=== PATIENT | male | born 1945 | race Caucasian/White ===

== ENCOUNTER 2021-03-01 23:41 | Inpatient (IN) | payer OTHER ==
[~2021-03-01] VITALS: Ht 177.8 cm; Wt 79.4 kg
[2021-03-01 23:45] VITALS: BP 144/78
[2021-03-02 00:23] LABS: ABSOLUTE BASOPHILS 0.1 thou/uL (0.0-0.2); ABSOLUTE EOSINOPHILS 0.2 thou/uL (0.0-0.7); ABSOLUTE LYMPHOCYTES 1.7 thou/uL (0.8-5.3); ABSOLUTE NEUTROPHILS 5.1 thou/uL (1.6-8.1); BASOPHILS 0.6 %; EOSINOPHILS 2.6 %; HEMATOCRIT 43.7 % (42.0-52.0); HEMOGLOBIN 14.9 gm/dL (14.0-18.0); MCH 33.1 pg (26.0-34.0); MCHC 34.1 g/dL (28.0-37.0); MCV 97.1 fL (80.0-100.0); MONOCYTES 12.6 %; MPV 8.3 fl. (7.2-11.1); NUCLEATED RBCS 0 /100WBC; PLATELET COUNT* 166 thou/uL (150-400); POLYS 63.2 %; RDW-CV 14.1 % (10.5-14.5)
[2021-03-02 00:31] LABS: CALCIUM 8.4 mg/dL (8.5-10.1); CREATININE 1.2 mg/dL (0.6-1.3); POTASSIUM 3.8 mmol/L (3.5-5.1)
[2021-03-02 00:36] LABS: ALBUMIN 3.3 g/dL (3.4-5.0); TOTAL BILIRUBIN 0.7 mg/dL (<0.1-1.0); TOTAL PROTEIN 6.6 g/dL (6.4-8.2)
[2021-03-02 00:50] LABS: URINE BILIRUBIN NEGATIVE (Negative); URINE BLOOD 2+ (Negative); URINE CLARITY CLEAR; URINE COLOR YELLOW; URINE GLUCOSE-RANDOM NEGATIVE (Negative); URINE KETONES NEGATIVE (Negative); URINE LEUKOCYTES-REFLEX NEGATIVE (Negative); URINE NITRITE-REFLEX NEGATIVE (Negative); URINE PROTEIN TRACE (Negative)
[2021-03-02 01:26] LABS: CASTS None Seen /LPF (None Seen); SQUAMOUS NONE SEEN /LPF (0-3); URINE RBC 3-10 Few /HPF (0-2); URINE WBC-REFLEX None Seen /HPF (0-5)
[2021-03-02 01:27] LABS: BACTERIA-REFLEX None Seen /HPF (None Seen); CRYSTALS None Seen /LPF (None Seen)
[2021-03-02 01:53] LABS: BE -4.4 mmol/L (-2 to +3); PCO2 33.1 mmHg (35.0-45.0); pH 7.388 (7.340-7.450)
--- NOTE | 2021-03-02 09:07 | EKG ---
[place] [address] ELECTROCARDIOGRAM REPORT Name: TEJ KENNY Room: [place] [address] ADM IN ..#: [id number] Admission: 03/02/21 Attend Phys: Carrie Meza, Discharge: Date of : 41 Date of Service: 03/01/21 2345 Report #: [id number] THIS REPORT FOR: //name// [facility] ED Test Date: 2021-03-01 Test Time: 23:45:19 Pat Name: TEJ KENNY Department: Room: [facility] Gender: M Assistant Administrator: : 1945 Requested By: Padmini Maurice Order Number: [id number] MD: Guerrero Valdez Measurements Intervals [place] Rate: 93 P: 51 ND: 195 QRS: -42 QRSD: 118 T: -52 QT: 389 QTc: 484 Interpretive Statements Atrial-sensed ventricular-paced rhythm No further analysis attempted due to paced rhythm No previous ECG available for comparison Electronically Signed On 03-02-2021 9:07:13 CDT by Guerrero Valdez [email or web address] <ELECTRONICALLY SIGNED> By: Guerrero Valdez MD, FACC 03/02/21 0907 2345 2345 Guerrero Valdez MD, [facility] /EPI
[2021-03-02 14:01] LABS: HEMATOCRIT 41.9 % (42.0-52.0); HEMOGLOBIN 14.5 gm/dL (14.0-18.0); MCH 33.4 pg (26.0-34.0); MCHC 34.7 g/dL (28.0-37.0); MCV 96.4 fL (80.0-100.0); MPV 8.3 fl. (7.2-11.1); NUCLEATED RBCS 0 /100WBC; PLATELET COUNT* 168 thou/uL (150-400); RBC 4.34 mil/uL (4.50-6.00); WBC 5.1 thou/uL (4.0-11.0)
[2021-03-02 14:11] LABS: CALCIUM 8.6 mg/dL (8.5-10.1); CREATININE 1.3 mg/dL (0.6-1.3); MAGNESIUM 1.8 mg/dL (1.8-2.4); POTASSIUM 3.8 mmol/L (3.5-5.1)
[2021-03-02 14:15] LABS: APTT 25.2 Seconds (25.0-31.3); INR 1.1; PROTIME 11.7 Seconds (9.20-11.50)
--- NOTE | 2021-03-02 14:15 | 2DMMODE ---
[place] [address] 2 D/M-MODE ECHOCARDIOGRAM Name: SHIRLEYROSANATEJ Missael Room: [address] IN [facility]#: [id number] Admission: 03/02/21 Attend Phys: Carrie Meza, Discharge: Date of : 41 Date of Service: 03/02/21 1414 Report #: [id number] THIS REPORT FOR: cc: FAM - No family physician/PCP FAM - No family physician/PCP Guerrero Valdez MD [facility] ~ ADDENDUM APPROVED REPORT Study performed: 03/02/2021 10:15:16 EXAM: Comprehensive 2D, Doppler, and color-flow Echocardiogram Patient Location: In-Patient Room #: ER Status: routine BSA: 1.97 HR: 97 bpm BP: 109/72 mmHg Rhythm: NSR Other Information Study Quality: Good Indications Congestive Heart Failure 2D Dimensions IVSd: 11.20 (7-11mm) LVOT Diam: 20.32 (18-24mm) LVDd: 73.79 mm PWd: 9.45 (7-11mm) Ascending Ao: 39.26 (22-36mm) LVDs: 62.10 (25-40mm) Aortic Root: 36.96 mm Volumes Left Atrial Volume (Systole) LA ESV Index: 54.50 mL/m2 Aortic Valve AoV Peak Raj.: 1.45 m/s AO Peak Gr.: 8.46 mmHg LVOT Max P.66 mmHg AO Mean Gr.: 4.72 mmHg LVOT Mean P.90 mmHg LVOT Max V: 0.96 m/s AO V2 VTI: 29.06 cm LVOT Mean V: 0.64 m/s JENNI (VTI): 2.32 cm2 LVOT V1 VTI: 20.77 [place] [address] 2 D/M-MODE ECHOCARDIOGRAM Name: TEJ KENNY Room: [address] IN [facility]#: [id number] Admission: 03/02/21 Attend Phys: Carrie Meza, Discharge: Date of : 41 Date of Service: 03/02/21 1414 Report #: [id number] Mitral Valve E/A Ratio: 1.44 MV Decel. Time: 142.96 ms MV E Max Raj.: 1.15 m/s MV PHT: 41.46 ms MVA (PHT): 5.31 cm2 TDI E/Lateral E': 19.17 E/Medial E': 19.17 Medial E' Raj.: 0.06 m/s Lateral E' Raj.: 0.06 m/s Pulmonary Valve PV Peak Raj.: 1.14 m/s PV Peak Gr.: 5.17 mmHg Tricuspid Valve RAP Estimate: 5.00 mmHg TR Peak Gr.: 35.77 mmHg RVSP: 40.00 mmHg PA Pressure: 40.00 mmHg Left Ventricle Left ventricle is moderately dilated. There is severe global hypokinesis. Mild concentric left ventricular hypertrophy. Left ventricular systolic function is severely decreased. LVEF is 25-30%. Transmitral Doppler flow pattern suggests restrictive physiology. Right Ventricle Right ventricle is mildly dilated. The right ventricular systolic function is normal. Pacing ICD lead is present in the right ventricle. Atria Left atrium is moderately dilated. Right atrium is mildly dilated. Aortic Valve The aortic valve is normal in structure. No aortic regurgitation is present. There is no aortic valvular stenosis. Mitral Valve The mitral valve is normal in structure. Mild mitral regurgitation. No evidence of mitral valve stenosis. Tricuspid Valve The tricuspid valve is normal in structure[place] [address] 2 D/M-MODE ECHOCARDIOGRAM Name: TEJ KENNY Room: [address] IN [facility]#: [id number] Admission: 03/02/21 Attend Phys: Carrie Meza, Discharge: Date of : 41 Date of Service: 03/02/21 1414 Report #: [id number] regurgitation The RVSP is 40-45 mmHg. Pulmonic Valve The pulmonary valve is normal in structure. There is no pulmonic valvular regurgitation. Great Vessels The aortic root is normal in size. The ascending aorta is mildly dilated. (3.9 cm.) IVC is normal in size and collapses >50% with inspiration. Pericardium There is no pericardial effusion. <Conclusion> Left ventricle is moderately dilated. Mild concentric left ventricular hypertrophy. Left ventricular systolic function is severely decreased. LVEF is 25-30%. Transmitral Doppler flow pattern suggests restrictive physiology. There is severe global hypokinesis. Right ventricle is mildly dilated. Left atrium is moderately dilated. Right atrium is mildly dilated. Pacing ICD lead is present in the right ventricle. Mild mitral regurgitation. Mild tricuspid regurgitation The RVSP is 40-45 mmHg. IVC is normal in size and collapses >50% with inspiration. The ascending aorta is mildly dilated. (3.9 cm.) <ELECTRONICALLY SIGNED> By: Guerrero Valdez MD, FACC 03/02/21 1414 1414 1414 Guerrero Valdez MD, FACC /INF
[2021-03-02 14:52] LABS: ABSOLUTE LYMPHOCYTES 0.4 thou/uL (0.8-5.3); ABSOLUTE MONOCYTES 0.2 thou/uL (0.0-1.2); ABSOLUTE NEUTROPHILS 4.6 thou/uL (1.6-8.1); PLATELET ESTIMATE ADEQUATE
[2021-03-02 15:46] VITALS: BP 115/40
[2021-03-02 16:00] VITALS: BP 116/50
[2021-03-02 23:56] VITALS: BP 79/43
[2021-03-03 04:31] VITALS: BP 107/57
[2021-03-03 04:37] LABS: ABSOLUTE LYMPHOCYTES 0.5 thou/uL (0.8-5.3); ABSOLUTE MONOCYTES 0.2 thou/uL (0.0-1.2); ABSOLUTE NEUTROPHILS 8.6 thou/uL (1.6-8.1); HEMATOCRIT 38.2 % (42.0-52.0); LYMPHOCYTES 5.3 %; MCH 32.7 pg (26.0-34.0); MCV 96.1 fL (80.0-100.0); MONOCYTES 2.7 %; MPV 8.8 fl. (7.2-11.1); NUCLEATED RBCS 0 /100WBC; PLATELET COUNT* 171 thou/uL (150-400); RBC 3.98 mil/uL (4.50-6.00); RDW-CV 14.4 % (10.5-14.5); WBC 9.3 thou/uL (4.0-11.0)
[2021-03-03 04:45] LABS: CALCIUM 8.5 mg/dL (8.5-10.1); CREATININE 1.3 mg/dL (0.6-1.3); POTASSIUM 4.3 mmol/L (3.5-5.1)
[2021-03-03 08:00] VITALS: BP 113/74
[2021-03-03 11:44] VITALS: BP 119/66
[2021-03-03 14:32] LABS: MAGNESIUM 1.9 mg/dL (1.8-2.4); TOTAL PROTEIN 5.9 g/dL (6.4-8.2)
[2021-03-03 15:49] LABS: BF RBC 1679 /mm3; TOTAL CELL COUNT 2016 /mm3
[2021-03-03 15:51] VITALS: BP 131/86
[2021-03-03 16:27] LABS: TOTAL VOLUME 1160 ml
[2021-03-03 16:28] LABS: CLARITY HAZY
[2021-03-03 17:27] LABS: BF LYMPHOCYTES 96 %; BF MONOCYTES 2 %; BF POLYS 2 %; BF TISSUE 12 /100 WBC
[2021-03-03 17:28] LABS: SOURCE PLEURAL FLUID
[2021-03-03 20:39] VITALS: BP 109/70
[2021-03-03 23:51] VITALS: BP 143/86
[2021-03-04 03:57] VITALS: BP 135/80
[2021-03-04 04:40] LABS: ALBUMIN 3.2 g/dL (3.4-5.0); CALCIUM 9.1 mg/dL (8.5-10.1); CREATININE 1.4 mg/dL (0.6-1.3); POTASSIUM 5.3 mmol/L (3.5-5.1); TOTAL BILIRUBIN 0.4 mg/dL (<0.1-1.0); TOTAL PROTEIN 6.7 g/dL (6.4-8.2)
[2021-03-04 08:00] VITALS: BP 132/72
[2021-03-04 12:00] VITALS: BP 113/61
[2021-03-04 15:43] LABS: CALCIUM 9.1 mg/dL (8.5-10.1); CREATININE 1.3 mg/dL (0.6-1.3); MAGNESIUM 2.2 mg/dL (1.8-2.4); POTASSIUM 4.9 mmol/L (3.5-5.1)
[2021-03-04 16:00] VITALS: BP 115/60
[2021-03-04 16:47] LABS: SOURCE PLEURAL
[2021-03-04 20:00] VITALS: BP 124/72
[2021-03-05 00:48] VITALS: BP 128/88
[2021-03-05 05:04] VITALS: BP 122/74
[2021-03-05 05:51] LABS: HEMATOCRIT 42.8 % (42.0-52.0); HEMOGLOBIN 14.5 gm/dL (14.0-18.0); MCH 32.9 pg (26.0-34.0); MCHC 33.8 g/dL (28.0-37.0); MCV 97.3 fL (80.0-100.0); MPV 8.7 fl. (7.2-11.1); NUCLEATED RBCS 0 /100WBC; PLATELET COUNT* 201 thou/uL (150-400); WBC 13.9 thou/uL (4.0-11.0)
[2021-03-05 06:01] LABS: CALCIUM 8.9 mg/dL (8.5-10.1); CREATININE 1.3 mg/dL (0.6-1.3); MAGNESIUM 2.2 mg/dL (1.8-2.4)
[2021-03-05 06:42] LABS: ABSOLUTE LYMPHOCYTES 0.4 thou/uL (0.8-5.3); ABSOLUTE MONOCYTES 0.4 thou/uL (0.0-1.2); ABSOLUTE NEUTROPHILS 13.1 thou/uL (1.6-8.1); ATYPICAL LYMPHS 1 %; PLATELET ESTIMATE ADEQUATE
[2021-03-05 08:00] VITALS: BP 124/77
[2021-03-05 12:00] VITALS: BP 116/74
[2021-03-05] MEDS ORDERED: LISINOPRIL5 MG PO (13:25)
[2021-03-05] MEDS ORDERED: CARVEDILOL3.125 MG PO (13:25)
[2021-03-05] MEDS ORDERED: DOXYCYCLINE 10100 MG PO (13:25)
[2021-03-05] MEDS ORDERED: LASIX 40 MG TAB40 MG PO (13:25)
[2021-03-05] MEDS ORDERED: PREDNISONE 10 M10 MG PO (13:27)
[2021-03-05] MEDS ORDERED: PROTONIX40 M2 PO (13:27)
[2021-03-05] MEDS ORDERED: ASA81BEC PO (13:28)
[2021-03-05 13:40] VITALS: BP 124/77
[2021-03-05 13:45] VITALS: BP 124/77
[2021-03-05 17:07] LABS: BODY FLUID LDH 110 IU/L (())
--- NOTE | 2021-03-09 08:58 | CON ---
[address] [address] CONSULTATION Name: TEJ KENNY Room: [address] IN [facility]#: [id number] Admission: 03/02/21 Attend Phys: Carrie Meza MD Discharge: 03/05/21 Date of : 41 Report #: [id number] THIS REPORT FOR: cc: FAM - No family physician/PCP FAM - No family physician/PCP Santiago Michaels MD ~ DOC #: [id number] Santiago Michaels MD DATE OF CONSULTATION: 03/02/2021 Consult has been requested by Dr. John Domingo. INDICATION FOR CONSULTATION: Shortness of breath. HISTORY OF PRESENT ILLNESS: A 75-year-old gentleman who has an extensive history of smoking in the past, discontinued less than a year ago, also does have a history of congestive heart failure and does have a defibrillator in place. The patient reports having had multiple admissions to an outside institution. I do not have records available as well in [facility]. The patient provide only a limited history now says that he is here with increasing shortness of breath. He has had a cough as well. Reports only small amounts of sputum production. There is no chest pain, does not have swelling of lower extremities or calf pain. Denies fever or chills. He is saturating around 91-92% on room air at the time of my evaluation. The patient answers to the negative for 12 questions for review of systems; however, his answers are rather limited and he does not provide a detailed history. PAST MEDICAL HISTORY: Chronic COPD, congestive heart failure. He just had an echocardiogram performed, which shows a left ventricular ejection fraction of 25-30% with a pulmonary artery systolic of 40. He has a defibrillator in place. SOCIAL HISTORY: An extensive history of smoking, unable to quantify exactly discontinued less than a year ago. No known history of heavy alcohol use or illegal drug use. CURRENT MEDICATIONS: The list is in [facility] reviewed. HOME MEDICATIONS: The home medication list is not available. ALLERGIES: DEMEROL. FAMILY HISTORY: There is no pertinent family history. PHYSICAL EXAMINATION: GENERAL: He is alert, awake and oriented; however, [place] [address] CONSULTATION Name: TEJ KENNY Room: [address]#: [id number] Admission: 03/02/21 Attend Phys: Carrie Meza MD Discharge: 03/05/21 Date of : 41 Report #: [id number] VITAL SIGNS: Has a pulse of 84 and a blood pressure of 115/40, he was saturating 91-92% on room air at the time of my evaluation, respiratory rate 12-14, afebrile with a temperature of 36.2. HEENT: Head is normocephalic and atraumatic. Pupils equal and reactive. There is no throat erythema. There is no thrush in his throat. Mucous membranes are moist. NECK: Does not show raised JVP asymmetry, mass or lymph nodes. CHEST: Symmetrical expansion on inspection and palpation. On auscultation, breath sounds are bilaterally equal. I do not hear any added sounds. HEART: Regular. There is no murmur. ABDOMEN: Soft, nontender. LOWER EXTREMITIES: Show no edema and no calf tenderness. SKIN: Dry and intact. NEUROLOGIC: Moves all extremities bilaterally equally and spontaneously. No focal deficit identified. LABORATORY DATA: The patient's chest x-ray as well as [facility]. COVID-19 antigen as well as PCR negative. Arterial blood gas is consistent with respiratory alkalosis. We performed a D-dimer, which is mildly elevated at 0.82. ASSESSMENT/PLAN: 1. Shortness of breath. Primarily, this appears to be secondary to congestive heart failure. He does have a component of COPD exacerbation as well and he does have infiltrates on the chest x-ray, these could be old, these could also be secondary to increase in pulmonary vascular congestion. I do not see any definite evidence of pneumonia at this time. 2. Acute on chronic systolic congestive heart failure. He received a dose of Lasix earlier. I agree with the same. His blood pressure is on the lower side and repeated lab work and creatinine is trending somewhat upwards and therefore, I did not order more Lasix now, but I will be inclined to give him more Lasix down the line and see if the finding on the chest x-ray clear with diuresis. At first glance, it appears likely to me that this is the primary etiology of his shortness of breath. 3. Chronic pulmonary disease exacerbation. Agree with Solu-Medrol as well as nebulized bronchodilators. 4. Pulmonary infiltrates. I do not see any definite evidence of pneumonia. I will characterize this further by doing a CT chest without contrast. We will also follow chest x-rays and see if we can diurese and whether these improved. He is currently on doxycycline. He has already received ceftriaxone as well as azithromycin in the Emergency Room for now, I therefore continued with azithromycin. We will do cultures and serologies showed the findings clear with diuresis. We will discontinue antibiotics later. 5. Elevated D-dimer/evaluation for thromboembolic phenomena, my suspicion is [address] [place] [address] CONSULTATION Name: TEJ KENNY Room: [address] IN ..#: [id number] Admission: 03/02/21 Attend Phys: Carrie Meza MD Discharge: 03/05/21 Date of : 41 Report #: [id number] low still I will do venous Dopplers. I feel that he is high risk for administration of IV dye. Therefore, I recommend holding off on CTA chest for now. I ordered a CT chest, this is without contrast showed the suspicion remains down the line, we can consider obtaining a perfusion scan. 6. Deep venous thrombosis prophylaxis. Agree with Lovenox. 7. C. difficile prophylaxis. We will order Lactinex. Thanks for this consultation. Santiago Michaels MD AP/PABLO <ELECTRONICALLY SIGNED> By: Santiago Michaels MD 03/09/21 0858 1548 2245Awyatt Michaels MD /nt
== END 2021-03-05 14:25 | disposition home or self-care (01) | DRG 177 ==
LOC: M.ERS 23:41 → M.TBA-ER 03-02 04:02 → M.2W 03-02 16:00
PROVIDERS: Internal Medicine; Internal Medicine Critical Care Medicine; Personal Emergency Response Attendant; ADMIT Internal Medicine; ATTEND Internal Medicine
PROC: 0W993ZZ Drainage of Right Pleural Cavity, Percutaneous Approach (ICD-10-PCS; principal; 2021-03-03)
DX: J15.6 Pneumonia due to other Gram-negative bacteria (principal); I50.23 Acute on chronic systolic (congestive) heart failure; J96.21 Acute and chronic respiratory failure with hypoxia; J44.1 Chronic obstructive pulmonary disease with (acute) exacerbation; J91.8 Pleural effusion in other conditions classified elsewhere; N17.9 Acute kidney failure, unspecified; J44.0 Chronic obstructive pulmonary disease with (acute) lower respiratory infection; Z20.822 Contact with and (suspected) exposure to COVID-19; Z95.0 Presence of cardiac pacemaker; Z87.891 Personal history of nicotine dependence; Z88.8 Allergy status to other drugs, medicaments and biological substances; Z79.82 Long term (current) use of aspirin; Z79.899 Other long term (current) drug therapy

== ENCOUNTER 2021-03-08 19:33 | Inpatient (IN) | payer OTHER ==
[~2021-03-08] VITALS: Ht 180.3 cm; Wt 83.0 kg
[~2021-03-08 19:33] MED LIST: ASA81BEC PO; CARVEDILOL3.125 MG PO; DOXYCYCLINE 10100 MG PO; LASIX 40 MG TAB40 MG PO; LISINOPRIL5 MG PO; PREDNISONE 10 M10 MG PO; PROTONIX40 M2 PO
[2021-03-08 19:42] VITALS: BP 122/67
[2021-03-08 20:20] LABS: ABSOLUTE EOSINOPHILS 0.1 thou/uL (0.0-0.7); ABSOLUTE LYMPHOCYTES 1.7 thou/uL (0.8-5.3); ABSOLUTE MONOCYTES 1.2 thou/uL (0.0-1.2); ABSOLUTE NEUTROPHILS 8.7 thou/uL (1.6-8.1); BASOPHILS 0.2 %; EOSINOPHILS 1.2 %; HEMATOCRIT 43.5 % (42.0-52.0); HEMOGLOBIN 14.7 gm/dL (14.0-18.0); LYMPHOCYTES 14.2 %; MCH 32.6 pg (26.0-34.0); MCHC 33.9 g/dL (28.0-37.0); MCV 96.3 fL (80.0-100.0); MONOCYTES 10.4 %; MPV 8.5 fl. (7.2-11.1); NUCLEATED RBCS 0 /100WBC; PLATELET COUNT* 246 thou/uL (150-400); RBC 4.52 mil/uL (4.50-6.00); RDW-CV 14.6 % (10.5-14.5); WBC 11.8 thou/uL (4.0-11.0)
[2021-03-08 20:28] LABS: CALCIUM 8.1 mg/dL (8.5-10.1); CREATININE 1.6 mg/dL (0.6-1.3); POTASSIUM 3.8 mmol/L (3.5-5.1)
[2021-03-08 20:39] LABS: TOTAL BILIRUBIN 0.4 mg/dL (<0.1-1.0); TOTAL PROTEIN 5.7 g/dL (6.4-8.2)
[2021-03-08 22:28] VITALS: BP 129/75
[2021-03-08 22:40] VITALS: BP 121/71
[2021-03-09 03:49] LABS: HEMATOCRIT 45.1 % (42.0-52.0); HEMOGLOBIN 15.6 gm/dL (14.0-18.0); MCH 32.6 pg (26.0-34.0); MCHC 34.5 g/dL (28.0-37.0); MCV 94.5 fL (80.0-100.0); MPV 8.4 fl. (7.2-11.1); RBC 4.77 mil/uL (4.50-6.00); RDW-CV 14.3 % (10.5-14.5); WBC 10.9 thou/uL (4.0-11.0)
[2021-03-09 04:48] VITALS: BP 126/78
--- NOTE | 2021-03-09 05:46 | NUR ---
REPORT RECIEVED FROM ED. PT ORIENTED TO ROOM, CALL LIGHT SHOWN, FALL AGREEMENT WENT OVER. PT STATED UNDERSTANDING. IV PATENT, HEPARIN DRIP INFUSING ORDERED. FALL PRECAUTIONS IN PLACE. NO REPORTS OF PAIN OR DIFFICULTY BREATHING. PT ABLE TO MAKE NEEDS KNOWN, WILL CONTINUE WITH PLAN OF CARE.
--- NOTE | 2021-03-09 07:10 | NUR ---
CHANGE OF SHIFT BEDSIDE REPORT GIVEN PATIENT SEEN AT BEDSIDE, IN BED WATCHING TV ASSUMED PATIENT CARE
[2021-03-09 08:00] VITALS: BP 124/85
[2021-03-09 09:41] LABS: CHOLESTEROL 188 mg/dL (<200); HDL CHOLESTEROL 64 mg/dL (>40); LDL CHOLESTEROL 100 mg/dL (<100); TC:HDL 2.9 Ratio (Not establshd); TRIGLYCERIDE 124 mg/dL (<150); VLDL 25 mg/dL (<40)
[2021-03-09 09:42] LABS: SERUM ASSESSMENT Clear
--- NOTE | 2021-03-09 09:58 | NUR ---
pt moved to with his son from [facility] recently. pt drives a vehicle and is independent with cares. pt denies hx with hh or snf. pt has no dmes. pt does not go to outpatinet dialysis. cm to cont to follow.
--- NOTE | 2021-03-09 11:07 | EKG ---
[place] [address] ELECTROCARDIOGRAM REPORT Name: TEJ KENNY Room: [address] ADM IN ..#: [id number] Admission: 03/08/21 Attend Phys: John Domingo, Discharge: Date of : 41 Date of Service: 03/08/212000 Report #: [id number] THIS REPORT FOR: //name// [facility] ED Test Date: 2021-03-08 Test Time: 20:01:17 Pat Name: TEJ KENNY Department: Room: [facility] Gender: M Communication Electronic Technician: NURIA : 1945 Requested By: Bharat Rosa Order Number: [id number] MD: Ricky Roper Measurements Intervals [place] Rate: 66 P: 0 SD: 144 QRS: -48 QRSD: 154 T: -56 QT: 471 QTc: 494 Interpretive Statements Atrial-ventricular dual-paced complexes with rare PVCs No further analysis attempted due to paced rhythm Compared to ECG 03/01/2021 23:45:19 AV sequential paced rhythm is noted and a rare PVC is noted Electronically Signed On 03-09-2021 11:07:04 CDT by Ricky Roper [email or web address] <ELECTRONICALLY SIGNED> By: Ricky Roper MD, [facility] 03/09/21 1107 00 00 Ricky Roper MD, [facility] /EPI
[2021-03-09 12:00] VITALS: BP 118/75
[2021-03-09 16:00] VITALS: BP 124/67
[2021-03-09 20:00] VITALS: BP 152/68
[2021-03-10] VITALS (7 sets, daily range): BP systolic 104–129; BP diastolic 50–71
--- NOTE | 2021-03-10 01:51 | NUR ---
PT ALERT ORIENTED. UP AD JORDY TO BR. AV PACED. ON 2000 ML FR. RA DOBUTAMINE QTT AT 2.5MCG/MIN.
[2021-03-10 04:15] LABS: ABSOLUTE LYMPHOCYTES 1.1 thou/uL (0.8-5.3); ABSOLUTE MONOCYTES 1.1 thou/uL (0.0-1.2); ABSOLUTE NEUTROPHILS 8.5 thou/uL (1.6-8.1); BASOPHILS 0.2 %; EOSINOPHILS 0.1 %; HEMATOCRIT 43.6 % (42.0-52.0); LYMPHOCYTES 10.5 %; MCH 32.9 pg (26.0-34.0); MCHC 34.3 g/dL (28.0-37.0); MPV 8.5 fl. (7.2-11.1); NUCLEATED RBCS 0 /100WBC; PLATELET COUNT* 249 thou/uL (150-400); POLYS 79.2 %; RBC 4.54 mil/uL (4.50-6.00); RDW-CV 14.4 % (10.5-14.5); WBC 10.7 thou/uL (4.0-11.0)
[2021-03-10 04:34] LABS: CALCIUM 8.5 mg/dL (8.5-10.1); CREATININE 1.2 mg/dL (0.6-1.3); POTASSIUM 4.6 mmol/L (3.5-5.1)
--- NOTE | 2021-03-10 15:43 | NUR ---
POC UPDATE; PT IS ON DOBUTAMINE GTT. PT LIVES AT HOME WITH SON, RECENTLY MOVED FROM [place]. CURRENTLY PT HAS NO HH NEEDS.
--- NOTE | 2021-03-10 18:30 | NUR ---
RECEIVED REPORT AROUND 0715. ASSUMED CARE. VS AND ASSESSMENT CHARTED. IV INTACT RIGHT AC. HEART MONITOR ATTACHED AT AVPACED/VPACED. PT UP ADLIB. ROSALIE CORTEZ APPLIED THIS AM. MEDS GIVEN PER NOV. HOURLY ROUNDING PERFOMRED. NO PAIN THIS SHIFT. CALL LIGHT WITH IN REACH. WILL CONTINUE TO MONITOR.
[2021-03-11 07:54] LABS: HEMATOCRIT 43.3 % (42.0-52.0); HEMOGLOBIN 14.9 gm/dL (14.0-18.0); MCH 33.3 pg (26.0-34.0); MCHC 34.5 g/dL (28.0-37.0); MCV 96.7 fL (80.0-100.0); MPV 8.7 fl. (7.2-11.1); RBC 4.48 mil/uL (4.50-6.00); RDW-CV 14.2 % (10.5-14.5); WBC 13.3 thou/uL (4.0-11.0)
[2021-03-11 08:00] VITALS: BP 122/76
[2021-03-11 09:19] LABS: CALCIUM 8.5 mg/dL (8.5-10.1); POTASSIUM 4.4 mmol/L (3.5-5.1)
[2021-03-11] MEDS ORDERED: DEMADEX20 MG PO (10:11)
[2021-03-11] MEDS ORDERED: COZAAR 50 MG TA50 M1 PO (10:11)
[2021-03-11] MEDS ORDERED: SPIRONOLACTONE25 MG PO (10:11)
[2021-03-11 10:46] VITALS: BP 122/76
--- NOTE | 2021-03-11 12:25 | NUR ---
PLAN OF CARE: PHYSICIAN INFORMS OF PLAN FOR THE PT TO D/C HOME TODAY WITH NO NEEDS. CM RECIEVED A CALL FROM PT'S CAREGIVER TO DISCUSS D/C PLANNING, AND SHE INFORMS THAT THE PT DOES NOT HAVE TRANSPORTATION. CM INFORMED HER THAT SINCE THE PT HAS MEDICAID WE CAN ARRANGE TRANSPORATION WITH [employer] FOR FREE IT IS A SERVICE THAT MEDICAID COVERS. CM TO ARRANGE TRANSPORT WHEN INFORMED BY RN IN-CHARGE OF PT. CM WILL REMAIN AVAILABLE TO ASSIST AND FOLLOW NEEDED.
--- NOTE | 2021-03-11 12:28 | NUR ---
PHYSICIAN INFORMS OF PLAN FOR THE PT TO D/C HOME TODAY WITH SELF-CARE. NO CM D/C PLANNING NEEDS ANTICIPATED. PT INFORMS OF NEED FOR CAB VOUCHER. CM TO PROVIDE CAB VOUCHER TO RN. NO OTHER CM D/C PLANNING NEEDS ANTICIPATED. CM WILL REMAIN AVAILABLE TO ASSIST AND FOLLOW NEEDED.
[2021-03-11] MEDS ORDERED: LIPITOR10 MG PO (13:07)
--- NOTE | 2021-03-11 13:18 | NUR ---
ASSUMED CARE OF PATIENT THIS AM AT 0730. PATIENT IS ALERT AND ORIENTED X 4. HE DENIES CHEST PAIN AND SOA. TELE SHOWS A V PACED RHYTHM. DUBUTAMINE GTT DISCONTINUED PER ORDER. PATIENT STARTED ON ORDERED DIRURETICS. DR IN TO ROUND AND DISCHARGE ORDERS WERE WRITTEN. PATIENT GIVEN DISCHARGE AND FOLLOW UP INSTRUCTIOND. SALINE LOCK AND TELE MONITOR DISCONTINUED. CASE MANAGEMENT NOTIFIED FOR CAB PASS.
--- NOTE | 2021-03-11 15:19 | NUR ---
Staff nurse talked with patient about his follow up Doctor appointment at the cardiolgy office. Before the patient left the hospital he was aware he had an appointment with Lauren Morel at the [facility] office on 03/16/21 at 10:15.
== END 2021-03-11 14:00 | disposition home or self-care (01) | DRG 291 ==
LOC: M.ERS 19:33 → M.TBA-ER 21:12 → M.2W 21:12
PROVIDERS: Family Medicine; Internal Medicine; Nurse Practitioner Psychiatric/Mental Health; Personal Emergency Response Attendant; Registered Nurse; ADMIT Internal Medicine; ATTEND Internal Medicine
DX: I13.0 Hypertensive heart and chronic kidney disease with heart failure and stage 1 through stage 4 chronic kidney disease, or unspecified chronic kidney disease (principal); I50.23 Acute on chronic systolic (congestive) heart failure; N17.0 Acute kidney failure with tubular necrosis; J44.1 Chronic obstructive pulmonary disease with (acute) exacerbation; Z20.822 Contact with and (suspected) exposure to COVID-19; I25.5 Ischemic cardiomyopathy; N18.9 Chronic kidney disease, unspecified; I25.10 Atherosclerotic heart disease of native coronary artery without angina pectoris; Z95.1 Presence of aortocoronary bypass graft; Z95.810 Presence of automatic (implantable) cardiac defibrillator; Z82.49 Family history of ischemic heart disease and other diseases of the circulatory system; Z88.8 Allergy status to other drugs, medicaments and biological substances; Z87.891 Personal history of nicotine dependence; Z79.82 Long term (current) use of aspirin; Z79.899 Other long term (current) drug therapy

== ENCOUNTER 2021-09-28 09:46 | Inpatient (IN) | payer OTHER ==
[~2021-09-28] VITALS: Ht 180.3 cm; Wt 77.6 kg
[~2021-09-28 09:46] MED LIST changes: +COZAAR 50 MG TA50 M1 PO; +DEMADEX20 MG PO; +LIPITOR10 MG PO; +SPIRONOLACTONE25 MG PO
[2021-09-28 09:59] VITALS: BP 84/39
[2021-09-28 10:46] LABS: ABSOLUTE LYMPHOCYTES 0.6 thou/uL (0.8-5.3); ABSOLUTE MONOCYTES 0.4 thou/uL (0.0-1.2); ABSOLUTE NEUTROPHILS 2.3 thou/uL (1.6-8.1); BASOPHILS 0.4 %; EOSINOPHILS 0.1 %; HEMATOCRIT 44.6 % (42.0-52.0); HEMOGLOBIN 15.8 gm/dL (14.0-18.0); LYMPHOCYTES 18.2 %; MCH 33.1 pg (26.0-34.0); MCHC 35.3 g/dL (28.0-37.0); MCV 93.8 fL (80.0-100.0); MONOCYTES 10.9 %; MPV 8.7 fl. (7.2-11.1); NUCLEATED RBCS 0 /100WBC; PLATELET COUNT* 153 thou/uL (150-400); POLYS 70.4 %; RBC 4.75 mil/uL (4.50-6.00); RDW-CV 12.6 % (10.5-14.5); WBC 3.3 thou/uL (4.0-11.0)
[2021-09-28 10:57] LABS: CALCIUM 8.7 mg/dL (8.5-10.1); CREATININE 1.7 mg/dL (0.6-1.3)
[2021-09-28 11:07] LABS: ALBUMIN 3.4 g/dL (3.4-5.0); TOTAL PROTEIN 6.9 g/dL (6.4-8.2)
--- NOTE | 2021-09-28 11:21 | EKG ---
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: [facility] : 1945 Requested By: Marcella Hunt Order Number: [id number] MD: Ricky Roper Measurements Intervals [place] Rate: 62 P: -13 HI: 149 QRS: -48 QRSD: 151 T: 267 QT: 470 QTc: 478 Interpretive Statements Atrial-ventricular dual-paced complexes No further analysis attempted due to paced rhythm Compared to ECG 03/08/2021 20:01:17 Ventricular premature complex(es) no longer present Electronically Signed On 09-28-2021 11:21:13 VIDEO COORDINATOR by Ricky Roper [email or web address] <ELECTRONICALLY SIGNED> By: Ricky Roper MD, [facility] 09/28/21 1121 1012 1012 Ricky Roper MD, [facility] /EPI
[2021-09-28 11:41] LABS: INFLUENZA A ANTIGEN Negative (Negative); INFLUENZA B ANTIGEN Negative (Negative)
[2021-09-28 16:57] VITALS: BP 90/38
[2021-09-28 21:00] VITALS: BP 102/56
[2021-09-29 01:00] VITALS: BP 126/62
[2021-09-29 04:47] LABS: ABSOLUTE LYMPHOCYTES 0.5 thou/uL (0.8-5.3); ABSOLUTE MONOCYTES 0.1 thou/uL (0.0-1.2); ABSOLUTE NEUTROPHILS 1.6 thou/uL (1.6-8.1); BASOPHILS 0.4 %; HEMATOCRIT 44.3 % (42.0-52.0); HEMOGLOBIN 15.2 gm/dL (14.0-18.0); LYMPHOCYTES 23.5 %; MCH 32.6 pg (26.0-34.0); MCHC 34.4 g/dL (28.0-37.0); MCV 94.7 fL (80.0-100.0); MONOCYTES 6.4 %; MPV 8.8 fl. (7.2-11.1); NUCLEATED RBCS 0 /100WBC; PLATELET COUNT* 151 thou/uL (150-400); POLYS 69.7 %; RBC 4.67 mil/uL (4.50-6.00); RDW-CV 12.6 % (10.5-14.5); WBC 2.3 thou/uL (4.0-11.0)
[2021-09-29 05:00] VITALS: BP 97/48
[2021-09-29 05:35] LABS: CALCIUM 8.6 mg/dL (8.5-10.1); CREATININE 1.6 mg/dL (0.6-1.3); POTASSIUM 4.4 mmol/L (3.5-5.1)
[2021-09-29 08:51] VITALS: BP 97/49
[2021-09-29 12:50] VITALS: BP 120/80
--- NOTE | 2021-09-29 13:26 | 2DMMODE ---
[place] [address] 2 D/M-MODE ECHOCARDIOGRAM Name: SHIRLEYROSANATEJ III Room: [address] [facility]#: [id number] Admission: 09/28/21 Attend Phys: John Domingo, Discharge: Date of : 41 Date of Service: 09/29/21 1325 Report #: [id number] THIS REPORT FOR: cc: Gera Nguyen MD, Christopher MD Holkins,Ricky Bella MD [facility] ~ APPROVED REPORT Study performed: 09/29/2021 10:43:24 EXAM: Comprehensive 2D, Doppler, and color-flow Echocardiogram Patient Location: In-Patient Room #: er Status: routine BSA: 1.95 HR: 60 bpm BP: 100/45 mmHg Rhythm: NSR Other Information Study Quality: Good Indications Dyspnea 2D Dimensions IVSd: 11.10 (7-11mm) LVOT Diam: 20.75 (18-24mm) LVDd: 68.22 mm PWd: 11.53 (7-11mm) Ascending Ao: 38.07 (22-36mm) LVDs: 57.02 (25-40mm) Aortic Root: 39.28 mm Volumes Left Atrial Volume (Systole) LA ESV Index: 40.40 mL/m2 Aortic Valve AoV Peak Raj.: 1.25 m/s AO Peak Gr.: 6.22 mmHg LVOT Max P.34 mmHg AO Mean Gr.: 3.67 mmHg LVOT Mean P.58 mmHg LVOT Max V: 0.91 m/s AO V2 VTI: 21.91 cm LVOT Mean V: 0.57 m/s JENNI (VTI): 2.80 cm2 LVOT V1 VTI: 18.16 [place] [address] 2 D/M-MODE ECHOCARDIOGRAM Name: TEJ KENNY III Room: [address]#: [id number] Admission: 09/28/21 Attend Phys: John Domingo, Discharge: Date of : 41 Date of Service: 09/29/21 1325 Report #: [id number] Mitral Valve E/A Ratio: 0.41 MV Decel. Time: 440.01 ms MV E Max Raj.: 0.38 m/s MV PHT: 127.60 ms MVA (PHT): 1.72 cm2 TDI E/Medial E': 6.33 Medial E' Raj.: 0.06 m/s Pulmonary Valve PV Peak Raj.: 0.93 m/s PV Peak Gr.: 3.43 mmHg Tricuspid Valve RAP Estimate: 5.00 mmHg TR Peak Gr.: 17.47 mmHg RVSP: 22.00 mmHg PA Pressure: 22.00 mmHg Left Ventricle Left ventricle is mildly dilated. Regional wall motion abnormalities are noted with severe hypo-akinesis of the inferior wall. There is normal left ventricular wall thickness. Left ventricular systolic function is severely decreased. LVEF is 30%. Grade I - abnormal relaxation pattern. Right Ventricle The right ventricle is normal size. The right ventricular systolic function is normal. Pacemaker lead is present in the right ventricle. Atria Left atrium is mildly dilated. The right atrium size is normal. Aortic Valve Mild aortic valve sclerosis. No aortic regurgitation is present. There is no aortic valvular stenosis. Mitral Valve The mitral valve is normal in structure. Trace mitral regurgitation. No evidence of mitral valve stenosis. Tricuspid Valve The tricuspid valve is normal in structure. Trace tricuspid regurgitation. No pulmonary [place] [address] 2 D/M-MODE ECHOCARDIOGRAM Name: TEJ KENNY GREGORY Room: [address]#: [id number] Admission: 09/28/21 Attend Phys: John Domingo, Discharge: Date of : 41 Date of Service: 09/29/21 1325 Report #: [id number] Pulmonic Valve The pulmonary valve is normal in structure. Trace pulmonic regurgitation. Great Vessels The aortic root is normal in size. IVC is normal in size and collapses >50% with inspiration. Pericardium There is no pericardial effusion. <Conclusion> Left ventricle is mildly dilated. There is normal left ventricular wall thickness. Left ventricular systolic function is severely decreased. LVEF is 30%. Grade I - abnormal relaxation pattern. The right ventricle is normal size. Left atrium is mildly dilated. The right atrium size is normal. Mild aortic valve sclerosis. No aortic regurgitation is present. There is no aortic valvular stenosis. The mitral valve is normal in structure. Trace mitral regurgitation. The tricuspid valve is normal in structure. Trace tricuspid regurgitation. No pulmonary hypertension. IVC is normal in size and collapses >50% with inspiration. There is no pericardial effusion. Pacemaker lead is present in the right ventricle. Regional wall motion abnormalities are noted with severe hypo-akinesis of the inferior wall. <ELECTRONICALLY SIGNED> By: Ricky Roper MD, FACC 09/29/21 1325 24 1325 Ricky Roper MD, FACC /INF
[2021-09-29 17:29] VITALS: BP 98/70
[2021-09-29 22:30] VITALS: BP 102/49
[2021-09-30] VITALS (7 sets, daily range): BP systolic 79–125; BP diastolic 49–79
[2021-10-01] VITALS (9 sets, daily range): BP systolic 87–121; BP diastolic 34–65
[2021-10-01 05:16] LABS: HEMATOCRIT 44.7 % (42.0-52.0); HEMOGLOBIN 15.5 gm/dL (14.0-18.0); MCH 32.7 pg (26.0-34.0); MCHC 34.6 g/dL (28.0-37.0); MCV 94.3 fL (80.0-100.0); MPV 8.9 fl. (7.2-11.1); NUCLEATED RBCS 0 /100WBC; RBC 4.74 mil/uL (4.50-6.00); RDW-CV 12.9 % (10.5-14.5); WBC 10.5 thou/uL (4.0-11.0)
[2021-10-01 05:17] LABS: PLATELET COUNT* 232 thou/uL (150-400)
[2021-10-01 06:29] LABS: ABSOLUTE EOSINOPHILS 0.1 thou/uL (0.0-0.7); ABSOLUTE LYMPHOCYTES 1.3 thou/uL (0.8-5.3); ABSOLUTE MONOCYTES 0.5 thou/uL (0.0-1.2); ABSOLUTE NEUTROPHILS 8.6 thou/uL (1.6-8.1); PLATELET ESTIMATE ADEQUATE
[2021-10-02 00:27] VITALS: BP 86/56
[2021-10-02 04:00] VITALS: BP 100/53
[2021-10-02 09:00] VITALS: BP 108/58
[2021-10-02] MEDS ORDERED: PREDNISONE 10 M10 MG PO (09:49)
[2021-10-02] MEDS ORDERED: CEFDINIR300 MG PO (09:49)
[2021-10-02 12:25] VITALS: BP 108/58
== END 2021-10-02 13:15 | disposition home or self-care (01) | DRG 177 ==
LOC: M.ERS 09:46 → M.TBA-ER 13:05 → M.ORTHSURG 09-29 19:50 → M.TBA-ER 09-29 23:18 → M.ORTHSURG 09-30 23:44
PROVIDERS: Internal Medicine; Nurse Practitioner Family; ADMIT Internal Medicine; ATTEND Internal Medicine
PROC: XW033E5 Introduction of Remdesivir Anti-infective into Peripheral Vein, Percutaneous Approach, New Technology Group 5 (ICD-10-PCS; principal; 2021-09-28)
DX: U07.1 COVID-19 (principal); J96.01 Acute respiratory failure with hypoxia; J12.82 Pneumonia due to coronavirus disease 2019; J44.0 Chronic obstructive pulmonary disease with (acute) lower respiratory infection; J44.1 Chronic obstructive pulmonary disease with (acute) exacerbation; N17.9 Acute kidney failure, unspecified; I13.0 Hypertensive heart and chronic kidney disease with heart failure and stage 1 through stage 4 chronic kidney disease, or unspecified chronic kidney disease; I50.9 Heart failure, unspecified; I25.5 Ischemic cardiomyopathy; N18.9 Chronic kidney disease, unspecified; Z95.0 Presence of cardiac pacemaker; Z87.891 Personal history of nicotine dependence

== ENCOUNTER 2021-10-04 11:34 | Inpatient (IN) | payer OTHER ==
[~2021-10-04] VITALS: Ht 177.8 cm; Wt 78.5 kg
[~2021-10-04 11:34] MED LIST changes: +CEFDINIR300 MG PO
[2021-10-04 11:51] VITALS: BP 86/55
[2021-10-04 12:32] LABS: ABSOLUTE LYMPHOCYTES 0.3 thou/uL (0.8-5.3); ABSOLUTE MONOCYTES 0.5 thou/uL (0.0-1.2); ABSOLUTE NEUTROPHILS 6.9 thou/uL (1.6-8.1); BASOPHILS 0.1 %; EOSINOPHILS 0.1 %; HEMATOCRIT 41.7 % (42.0-52.0); HEMOGLOBIN 14.7 gm/dL (14.0-18.0); LYMPHOCYTES 4.3 %; MCH 32.7 pg (26.0-34.0); MCHC 35.3 g/dL (28.0-37.0); MCV 92.7 fL (80.0-100.0); MONOCYTES 6.4 %; MPV 8.6 fl. (7.2-11.1); NUCLEATED RBCS 0 /100WBC; PLATELET COUNT* 276 thou/uL (150-400); POLYS 89.1 %; RBC 4.49 mil/uL (4.50-6.00); RDW-CV 12.4 % (10.5-14.5); WBC 7.8 thou/uL (4.0-11.0)
[2021-10-04 12:35] LABS: CREATININE 1.5 mg/dL (0.6-1.3); POTASSIUM 3.7 mmol/L (3.5-5.1)
[2021-10-04 12:46] LABS: ALBUMIN 3.1 g/dL (3.4-5.0); TOTAL BILIRUBIN 1.4 mg/dL (<0.1-1.0); TOTAL PROTEIN 5.8 g/dL (6.4-8.2)
--- NOTE | 2021-10-04 13:45 | EKG ---
[place] [address] ELECTROCARDIOGRAM REPORT Name: TEJ KENNY GREGORY Room: [facility]#: [id number] Admission: 10/04/21 Attend Phys: Discharge: Date of : 41 Date of Service: 10/04/21 1255 Report #: [id number] THIS REPORT FOR: //name// [facility] ED Test Date: 2021-10-04 Test Time: 12:55:05 Pat Name: TEJ KENNY Department: Room: Gender: [employer]: : 1945 Requested By: Uriel Veras Order Number: [id number] MD: Andres Cardenas Measurements Intervals [place] Rate: 88 P: NM: QRS: -33 QRSD: 149 T: 153 QT: 445 QTc: 539 Interpretive Statements ventricular pseudofusion beats PVC's Atrial fibrillation Artifact in lead(s) II,III,aVR,aVL,aVF,V1,V6 Compared to ECG 09/28/2021 10:12:10 atrial fibrillation now noted Electronically Signed On 10-04-2021 13:45:03 SAFETY INTERN by Andres Cardenas [email or web address] <ELECTRONICALLY SIGNED> By: Andres Cardenas MD, FAC 10/04/21 1345 1255 1255 Andres Cardenas MD, [facility] /EPI
[2021-10-04 18:20] LABS: URINE BILIRUBIN NEGATIVE (Negative); URINE BLOOD NEGATIVE (Negative); URINE CLARITY CLEAR; URINE COLOR YELLOW; URINE GLUCOSE-RANDOM NEGATIVE (Negative); URINE KETONES NEGATIVE (Negative); URINE LEUKOCYTES-REFLEX NEGATIVE (Negative); URINE NITRITE-REFLEX NEGATIVE (Negative); URINE PROTEIN NEGATIVE (Negative); URINE SPECIFIC GRAVITY 1.015 (1.005-1.030)
[2021-10-04 22:13] VITALS: BP 115/53
[2021-10-04 22:19] VITALS: BP 101/80
[2021-10-05 04:40] VITALS: BP 111/58
[2021-10-05 04:44] LABS: HEMOGLOBIN 13.6 gm/dL (14.0-18.0); MCH 32.9 pg (26.0-34.0); MCV 94.2 fL (80.0-100.0); MPV 8.2 fl. (7.2-11.1); RBC 4.14 mil/uL (4.50-6.00); RDW-CV 12.3 % (10.5-14.5); WBC 9.4 thou/uL (4.0-11.0)
[2021-10-05 05:02] LABS: ALBUMIN 2.6 g/dL (3.4-5.0); CALCIUM 7.9 mg/dL (8.5-10.1); CREATININE 1.3 mg/dL (0.6-1.3); MAGNESIUM 2.2 mg/dL (1.8-2.4); POTASSIUM 3.5 mmol/L (3.5-5.1); TOTAL PROTEIN 5.2 g/dL (6.4-8.2)
[2021-10-05 08:15] VITALS: BP 104/54
[2021-10-05 12:00] VITALS: BP 101/59
[2021-10-05 16:00] VITALS: BP 121/58
[2021-10-05 21:10] VITALS: BP 111/65
[2021-10-06 00:26] VITALS: BP 92/62
[2021-10-06 04:00] VITALS: BP 99/51
[2021-10-06 04:48] LABS: HEMATOCRIT 37.6 % (42.0-52.0); HEMOGLOBIN 12.8 gm/dL (14.0-18.0); MCH 32.1 pg (26.0-34.0); MCHC 34.1 g/dL (28.0-37.0); MCV 93.9 fL (80.0-100.0); MPV 8.5 fl. (7.2-11.1); RDW-CV 12.5 % (10.5-14.5); WBC 7.4 thou/uL (4.0-11.0)
[2021-10-06 05:06] LABS: ALBUMIN 2.4 g/dL (3.4-5.0); CREATININE 1.1 mg/dL (0.6-1.3); MAGNESIUM 2.3 mg/dL (1.8-2.4); POTASSIUM 3.8 mmol/L (3.5-5.1); TOTAL BILIRUBIN 1.1 mg/dL (<0.1-1.0)
[2021-10-06 06:43] LABS: TOTAL PROTEIN 5.1 g/dL (6.4-8.2)
[2021-10-06 07:40] VITALS: BP 96/49
[2021-10-06 12:00] VITALS: BP 120/59
[2021-10-06 20:01] VITALS: BP 116/66
[2021-10-07] VITALS (7 sets, daily range): BP systolic 90–129; BP diastolic 42–84
[2021-10-07 04:35] LABS: MCH 33.3 pg (26.0-34.0); MCHC 35.1 g/dL (28.0-37.0); MPV 8.5 fl. (7.2-11.1); RBC 3.9 mil/uL (4.50-6.00); RDW-CV 12.5 % (10.5-14.5); WBC 9.8 thou/uL (4.0-11.0)
[2021-10-07 04:59] LABS: ALBUMIN 2.4 g/dL (3.4-5.0); ALKALINE PHOSPHATASE 40 U/L (46-116); ANION GAP 7 mmol/L (7-16); BUN 26 mg/dL (7-18); CALCIUM 8.1 mg/dL (8.5-10.1); CHLORIDE 111 mmol/L (98-107); CHOLESTEROL 101 mg/dL (<200); CO2 26 mmol/L (21-32); CREATININE 1.2 mg/dL (0.6-1.3); GLUCOSE 143 mg/dL (70-99); HDL CHOLESTEROL 29 mg/dL (>40); LDL CHOLESTEROL 50 mg/dL (<100); MAGNESIUM 2.2 mg/dL (1.8-2.4); POTASSIUM 3.8 mmol/L (3.5-5.1); SGOT 15 U/L (15-37); SGPT 21 U/L (30-65); SODIUM 144 mmol/L (136-145); TC:HDL 3.5 Ratio (Not establshd); TOTAL BILIRUBIN 0.6 mg/dL (<0.1-1.0); TOTAL PROTEIN 5.1 g/dL (6.4-8.2); TRIGLYCERIDE 110 mg/dL (<150); VLDL 22 mg/dL (<40)
[2021-10-07 05:08] LABS: SERUM ASSESSMENT CLEAR
--- NOTE | 2021-10-07 14:38 | CON ---
[address] [address] CONSULTATION Name: TEJ KENNY GREGORY Room: [address] IN .R.#: [id number] Admission: 10/04/21 Attend Phys: Carrie Meza MD Discharge: Date of : 41 Report #: [id number] THIS REPORT FOR: cc: Gera Nguyen MD, Christopher MD Blick, David R. MD [facility] ~ cc: Gera Nguyen MD DATE OF CONSULTATION: 10/06/2021 CARDIOLOGY CONSULTATION HISTORY OF PRESENT ILLNESS: The patient is a 76-year-old single white male who I was asked to see in the hospital today after he was noted to be in atrial fibrillation. The patient has an extensive and complicated past medical history. He previously lived in [place], [place]. He had coronary artery bypass surgery in 1995. Four years ago, he had a Biotronik ICD implanted because of his cardiomyopathy. Echocardiogram here at [facility] last summer showed an ejection fraction only 25%. He required thoracentesis for pleural effusion. He has been on Entresto in the past, but could not tolerate it. Since I last saw him in the clinic 6 months ago, he denies any chest pain, increased shortness of breath, edema, palpitations or syncope. He does have his ICD checked at home with his transmitter. He has had no recent discharges of his defibrillator. He apparently had a cardiac catheterization at [place] in 2019 that showed the MOHAMUD graft was not used and there was an occluded vein graft to the circumflex artery. Stenting was not performed. The patient states that recently he has not been feeling well. He has not had the vaccine. He was actually admitted to [facility] this month with COVID-19 pneumonia. He was diuresed and apparently was just discharged on 10/02 which was Monday. He was brought back to the Emergency Room 2 days ago complaining of feeling weak, lightheaded, no appetite. He was nauseated. He was admitted for further evaluation and treatment. He notes he has had no cough. He has lost his sense of smell and taste. PAST MEDICAL HISTORY: Otherwise, significant for no other major surgical procedures. He has a history of chronic bronchitis, hyperlipidemia. No history of diabetes or hypertension. CURRENT MEDICATIONS: Consist of losartan, spironolactone, torsemide, Lipitor, carvedilol, aspirin. ALLERGIES: HE HAS A PREVIOUS INTOLERANCE TO DEMEROL. FAMILY HISTORY: [place] [address] CONSULTATION Name: TEJ KENNY III Room: [address]#: [id number] Admission: 10/04/21 Attend Phys: Carrie Meza MD Discharge: Date of : 41 Report #: [id number] SOCIAL HISTORY: He is . He used to live in [place], now lives in [place] with a son. 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 He used to smoke 2 packs of cigarettes a day, quit a year ago. No alcohol abuse. REVIEW OF SYSTEMS: No history of stroke. He does have a chronic cough. He has chronic kidney disease. No cancer. No psychiatric illness. No chronic skin condition. PHYSICAL EXAMINATION: GENERAL: Elderly, frail-appearing male, appeared in no acute distress. VITAL SIGNS: He had a blood pressure only 100/60, pulse is 70, he is afebrile. HEENT: He was anicteric. Conjunctivae are pale. Mucous membranes are moist. CHEST: Revealed decreased breath sounds bilaterally. CARDIAC: Regular rate and rhythm, no significant murmurs. ABDOMEN: Soft. EXTREMITIES: Had no pitting edema. SKIN: Cool and dry. NEUROLOGIC: Nonfocal. IMAGING DATA: His ECG when he was admitted showed a ventricular paced rhythm. His underlying rhythm appeared to represent atrial fibrillation. There were occasional ventricular premature complexes noted. His echocardiogram done last week here at the [facility] showed ejection fraction of 30%, biatrial enlargement, aortic sclerosis, trace mitral regurgitation. The patient had CT scan of the head performed when he was admitted that showed no acute abnormality. Chest x-ray on admission showed evidence of pneumonia. CT scan of the chest using a PE protocol showed no pulmonary embolus. Hyperinflated lung esquivel, pulmonary masses noted, evidence of COVID-19 infection. He had venous duplex scan of his legs that showed no DVT. LABORATORY DATA: Showed creatinine 1.1, potassium 3.8. His liver function studies were normal. Albumin 2.4. High sensitivity troponin was 33. BNP 13,635. His hematocrit is 37.6. His COVID antigen stat test was positive. IMPRESSION AND RECOMMENDATIONS: 1. COVID-19 pneumonia. 2. Previous placement of implantable cardioverter defibrillator. No recent discharges. The patient currently paced. 3. Acute on chronic systolic heart failure. Recommend Lasix. I would hold his angiotensin receptor wen because of low blood pressure. The patient is on a beta-wen and Aldactone. 4. Chronic obstructive pulmonary disease. 5. Previous tobacco abuse. Fortunately, the patient quit smoking. 6. Previous bypass surgery. No recent angina. Since the patient on Eliquis, I [address] [address] CONSULTATION Name: TEJ KENNY III Room: [address]#: [id number] Admission: 10/04/21 Attend Phys: Carrie Meza MD Discharge: Date of : 41 Report #: [id number] would not recommend aspirin at this time. 7. Hyperlipidemia. The patient is on a statin drug. <ELECTRONICALLY SIGNED> By: Andres Cardenas MD, FACC 10/07/21 1438 1332 2040Daviharvey Cardenas MD, FACC /nt
[2021-10-08 04:08] VITALS: BP 112/48
[2021-10-08 08:00] VITALS: BP 127/84
[2021-10-08 12:00] VITALS: BP 120/76
[2021-10-08 16:00] VITALS: BP 124/67
[2021-10-08 20:30] VITALS: BP 127/62
[2021-10-09] VITALS: BP 119/59
[2021-10-09 04:00] VITALS: BP 123/50
[2021-10-09 08:00] VITALS: BP 124/67
[2021-10-09 12:00] VITALS: BP 105/64
[2021-10-09 16:00] VITALS: BP 97/59
[2021-10-09 20:00] VITALS: BP 97/67
[2021-10-10 05:21] VITALS: BP 115/75
[2021-10-10 08:00] VITALS: BP 115/71
[2021-10-10 12:00] VITALS: BP 97/56
[2021-10-10 12:03] VITALS: BP 97/56
[2021-10-10 16:00] VITALS: BP 93/54
[2021-10-10 20:00] VITALS: BP 99/55
[2021-10-11 00:37] VITALS: BP 101/49
[2021-10-11 04:00] VITALS: BP 110/53
[2021-10-11 08:00] VITALS: BP 104/65
[2021-10-11 17:54] VITALS: BP 102/62
[2021-10-11 20:00] VITALS: BP 86/58
[2021-10-12] VITALS: BP 82/50
[2021-10-12 04:25] VITALS: BP 90/50
[2021-10-12 08:00] VITALS: BP 112/49
[2021-10-12 12:00] VITALS: BP 117/73
[2021-10-12] MEDS ORDERED: DEMADEX20 MG PO (13:25)
[2021-10-12] MEDS ORDERED: DEXAMETHASONE 22 M1 PO (13:25)
[2021-10-12] MEDS ORDERED: ELIQUIS5 MG PO (13:25)
[2021-10-12 16:00] VITALS: BP 99/66
== END 2021-10-12 18:15 | DRG 177 ==
LOC: M.ERS 11:34 → M.TBA-ER 13:58 → M.ORTHSURG 13:58 → M.TBA-ER 15:00 → M.ORTHSURG 21:46 → M.2W 10-11 13:40
PROVIDERS: Family Medicine; ADMIT Internal Medicine; ATTEND Internal Medicine
PROC: 05HC33Z Insertion of Infusion Device into Left Basilic Vein, Percutaneous Approach (ICD-10-PCS; principal; 2021-10-06)
DX: U07.1 COVID-19 (principal); J96.01 Acute respiratory failure with hypoxia; J15.6 Pneumonia due to other Gram-negative bacteria; J12.82 Pneumonia due to coronavirus disease 2019; I50.43 Acute on chronic combined systolic (congestive) and diastolic (congestive) heart failure; N17.9 Acute kidney failure, unspecified; J44.0 Chronic obstructive pulmonary disease with (acute) lower respiratory infection; I42.9 Cardiomyopathy, unspecified; R45.851 Suicidal ideations; E86.0 Dehydration; E78.5 Hyperlipidemia, unspecified; N18.30 Chronic kidney disease, stage 3 unspecified; I95.9 Hypotension, unspecified; I48.91 Unspecified atrial fibrillation; Z95.0 Presence of cardiac pacemaker; Z88.8 Allergy status to other drugs, medicaments and biological substances; Z87.891 Personal history of nicotine dependence; Z82.49 Family history of ischemic heart disease and other diseases of the circulatory system; Z79.899 Other long term (current) drug therapy

== ENCOUNTER 2021-10-13 18:57 | Inpatient (IN) | payer OTHER ==
[~2021-10-13] VITALS: Ht 177.8 cm; Wt 72.4 kg
--- NOTE | ~2021-10-13 | EMS ---
[facility] [address] [place] [address] EMS Patient Care Report Name: YVON KENNY III Room: [facility] Johnston#: [id number] Admission: 10/13/21 Attend Phys: Discharge: Date of : 43 Report #: [id number] THIS REPORT FOR: //name// Report Transmitted: 10/13/2021 20:03 EMS Care Summary NAPOLEON RAYGOZA Incident [id number] @ 10/13/2021 18:01 Incident Location [address] [place] [address] Patient Yvon Kenny Male, 76 Years 1945 Patient Address [address] [place] [address] Patient History Pacemaker/AICD,Myocardial Infarction (DC),Hypertension (HTN),Congestive Heart Failure (CHF), Patient Allergies , Patient Medications Gabapentin, Carvedilol, Dexamethasone, Prednisone, Chief Complaint Chest Pain Disposition Transported No Lights/Baudette Dispatch Reason Chest Pain (Non-Traumatic) Transported To [facility] Narrative [facility] WAS DISPATCHED TO THE LISTED LOCAL adderSs FOR CHEST PAIN. ON SCENE WITH IFD, WE CONTACTED THE PATIENT AND FACILITY STAFF INSIDE THE PATIENTS ROOM. THE PATIENT WAS ALERT AND LAYING SUPINE IN HIS BED. HE HAD NO OBVIOUS [facility] [address] [place] [address] EMS Patient Care Report Name: YVON KENNY III [id number] Admission: 10/13/21 Attend Phys: Discharge: Date of : 41 Report #: [id number] IMMEDIATE LIFE THREATS OR SIGNS OF DISTRESS. FACILITY STAFF PROVIDED A PATIENT PACKET AND STATED THE patient STARTED HAVING CHEST AND ARM PAIN APPROXIMATELY 30 MINUTES AGO. STAFF STATED THE patient HAS A HISTORY OF DC, CHF, AND HAS A PACEMAKER. AT PATIENT SIDE, A RAPID ASSESSMENT WAS COMPLETE. THE PATIENT DENIED ANY DIFFICULTY BREATHING, DIZZINESS, NAUSEA, HEADACHE, VISION IMPAIRMENTS, OR PAIN OUTSIDE OF HIS ARMS. THE patient STATED HE HAD SOME TINGLING IN HIS RIGHT FINGERS AND THE PAIN WAS NOT SO MUCH IN HIS CHEST BUT IN HIS ARMS. WHEN ASKED TO POINT TO THE PAIN, THE PATIENT POINTED TO HIS LEFT BICEP AND triceps AREA. AN ECG AND BLOOD PRESSURE WERE OBTAINED. THE patient SAID PER HIS DOCTORS ORDERS, HE COULD NOT HAVE ASA HOWEVER, HE COULD NOT REMEMBER WHY. THE PATIENT STATED HE WOULD LIKE TO BE TRANSPORTED TO THE LISTED LOCAL [facility]. THE PATIENT WAS ABLE TO SCOOT HIMSELF OFF HIS BED, ONTO THE STRETCHER. HE WAS SECURED WITH THE LAP AND SHOULDER BELTS THEN COVERED WITH A BLANKET. THE patient WAS TRANSPORTED TO THE ambulance WERE HE WAS LOADED AND SECURED WITHOUT INCIDENT. INSIDE THE AMBULANCE, THE PATIENT WAS PLACED BACK ON THE MONITOR. A SECONDARY ASSESSMENT WAS COMPLETE. PATIENT DEMOGRAPHIC AND MEDICAL HISTORY WAS GATHERED AN IV WAS ATTEMPTED. A BLOOD SUGAR WAS OBTAINED AND TRANSPORT WAS INITIATED. VITALS WERE MONITORED EN-ROUTE. A LEVEL OF consciousness WAS ESTABLISHED. A SECOND ECG WAS OBTAINED AND NEURO EXAM COMPLETE. THE patient REMAINED STABLE, TALKATIVE, AND STATED HIS PAIN HAD GONE AWAY. AT DESTINATION, ALL MONITORING WAS REMOVED. THE PATIENT SIGNED THE PRIVACY AND TRANSFER FORM. HE WAS UNLOADED FROM THE AMBULANCE AND TAKEN INTO ROOM THREE (3) ONCE IT WAS READY. THE STRETCHER WAS LOWERED AND LAP BELTS REMOVED. THE patient WAS ABLE TO STAND, PIVOT, AND LAY ON THE HOSPITAL BED WITHOUT ASSISTANCE OR INCIDENT. I GAVE RN JUDY A VERBAL PATIENT REPORT AND PATIENT INFORMATION PACKET. SHE SIGNED THE RECEIVING FACILITY FORM, COMPLETING THE TRANSFER OF CARE. [facility] CREW CLEARED THE CALL. Initial Vitals @18:08Pain: 02/25, @18:27Pain: 0, @18:10SpO2: 94, @18:19SpO2: 94, @18:29SpO2: 93, @18:39SpO2: 96, @18:09 @18:26 @18:10P: 150,R: 14,BP: 148/99, @18:19P: 150,R: 14,BP: 138/97, @18:29P: 137,R: 14,BP: 142/70, @18:39P: 53,R: 14,BP: 141/77, @18:10GCS: 15, @18:19GCS: 15, @18:29GCS: 15, @18:39GCS: 15, @18:22 [place] [address] EMS Patient Care Report Name: YVON KENNY III [facility] [id number] Admission: 10/13/21 Attend Phys: Discharge: Date of : 41 Report #: [id number] @18:21Glucose: 213, Assessments @18:07MENTAL:SKIN:HEENT:LUNG SOUNDS:ABDOMEN:PELVIS//GI:EXTREMITIES:PULSE:NEURO: Impression Angina pectoris Procedures @18:18 IV Therapy - cc () Site: Hand-Left Response: UnchangedFailed @18:09 12-Lead ECG Response: UnchangedSucceeded @18:26 12-Lead ECG Response: UnchangedSucceeded Timeline 17:30,Call Received 18:00,Dispatch Notified 18:00,Psap Call 18:01,Dispatched 18:01,En Route 18:05,On Scene 18:07,At Patient 18:08,BP: / M,PULSE: ,RR: R,SPO2: Ox,ETCO2: ,BG: ,PAIN: 6,GCS: , 18:09,12-Lead ECG,Response: UnchangedSucceeded, 18:09,BP: / M,PULSE: ,RR: R,SPO2: Ox,ETCO2: ,BG: ,PAIN: ,GCS: , 18:10,BP: / M,PULSE: ,RR: R,SPO2: 94 Ox,ETCO2: ,BG: ,PAIN: ,GCS: , 18:10,BP: 148/99 M,PULSE: 150,RR: 14 R,SPO2: Ox,ETCO2: ,BG: ,PAIN: ,GCS: , 18:10,BP: / M,PULSE: ,RR: R,SPO2: Ox,ETCO2: ,BG: ,PAIN: ,GCS: 15, 18:18,IV Therapy - cc Site: Hand-Left,Response: UnchangedFailed, 18:19,BP: / M,PULSE: ,RR: R,SPO2: 94 Ox,ETCO2: ,BG: ,PAIN: ,GCS: , 18:19,BP: 138/97 M,PULSE: 150,RR: 14 R,SPO2: Ox,ETCO2: ,BG: ,PAIN: ,GCS: , 18:19,BP: / M,PULSE: ,RR: R,SPO2: Ox,ETCO2: ,BG: ,PAIN: ,GCS: 15, 18:21,BP: / M,PULSE: ,RR: R,SPO2: Ox,ETCO2: ,B,PAIN: ,GCS: , 18:22,Depart Scene 18:22,BP: / M,PULSE: ,RR: R,SPO2: Ox,ETCO2: ,BG: ,PAIN: ,GCS: , 18:26,12-Lead ECG,Response: UnchangedSucceeded, 18:26,BP: / M,PULSE: ,RR: R,SPO2: Ox,ETCO2: ,BG: ,PAIN: ,GCS: , 18:27,BP: / M,PULSE: ,RR: R,SPO2: Ox,ETCO2: ,BG: ,PAIN: 0,GCS: , 18:29,BP: / M,PULSE: ,RR: R,SPO2: 93 Ox,ETCO2: ,BG: ,PAIN: ,GCS: , 18:29,BP: 142/70 M,PULSE: 137,RR: 14 R,SPO2: Ox,ETCO2: ,BG: ,PAIN: ,GCS: , 18:29,BP: / M,PULSE: ,RR: R,SPO2: Ox,ETCO2: ,BG: ,PAIN: ,GCS: 15, 18:39,BP: / M,PULSE: ,RR: R,SPO2: 96 Ox,ETCO2: ,BG: ,PAIN: ,GCS: , 18:39,BP: 141/77 M,PULSE: 53,RR: 14 R,SPO2: Ox,ETCO2: ,BG: ,PAIN: ,GCS: , 18:39,BP: / M,PULSE: ,RR: R,SPO2: Ox,ETCO2: ,BG: ,PAIN: ,GCS: 15, 18:43,At Destination [address] [address] EMS Patient Care Report Name: ZOYAYVON III Room: [facility]#: [id number] Admission: 10/13/21 Attend Phys: Discharge: Date of : 41 Report #: [id number] 19:08,Call Closed Disclaimer v1.1 Copyright 2021 [employer] This EMS Care Summary contains data elements from the applicable legal record (which may be displayed differently). It is designed to provide pertinent information for the following purposes: continuity of care, clinical quality, and state data reporting. The complete legal record is available to ED staff and administrators of the receiving hospital in [employer] Patient Tracker. All data is provided "as is."
[~2021-10-13 18:57] MED LIST changes: +DEXAMETHASONE 22 M1 PO; +ELIQUIS5 MG PO
[2021-10-13 18:58] VITALS: BP 102/58
[2021-10-13 19:37] LABS: HEMATOCRIT 44.7 % (42.0-52.0); MCHC 33.5 g/dL (28.0-37.0); MCV 95.5 fL (80.0-100.0); MPV 7.7 fl. (7.2-11.1); NUCLEATED RBCS 0 /100WBC; PLATELET COUNT* 302 thou/uL (150-400); RBC 4.69 mil/uL (4.50-6.00); WBC 16.3 thou/uL (4.0-11.0)
[2021-10-13 19:45] LABS: CALCIUM 8.5 mg/dL (8.5-10.1); POTASSIUM 4.4 mmol/L (3.5-5.1)
[2021-10-13 19:56] LABS: ALBUMIN 3.1 g/dL (3.4-5.0); MAGNESIUM 2.1 mg/dL (1.8-2.4); TOTAL BILIRUBIN 0.7 mg/dL (<0.1-1.0); TOTAL PROTEIN 6.5 g/dL (6.4-8.2)
[2021-10-13 20:50] LABS: URINE BILIRUBIN NEGATIVE (Negative); URINE BLOOD NEGATIVE (Negative); URINE CLARITY CLEAR; URINE COLOR YELLOW; URINE GLUCOSE-RANDOM NEGATIVE (Negative); URINE KETONES NEGATIVE (Negative); URINE LEUKOCYTES-REFLEX NEGATIVE (Negative); URINE NITRITE-REFLEX NEGATIVE (Negative); URINE PROTEIN NEGATIVE (Negative); URINE UROBILINOGEN 0.2 E.U./dl (0.2-1.0)
[2021-10-13 20:53] LABS: ABSOLUTE LYMPHOCYTES 1.5 thou/uL (0.8-5.3); ABSOLUTE NEUTROPHILS 13.9 thou/uL (1.6-8.1)
[2021-10-13 20:54] LABS: PLATELET ESTIMATE ADEQUATE
[2021-10-13 21:15] VITALS: BP 109/63
[2021-10-14] VITALS (13 sets, daily range): BP systolic 84–160; BP diastolic 45–76
--- NOTE | 2021-10-14 09:13 | EKG ---
[place] [address] ELECTROCARDIOGRAM REPORT Name: TEJ KENNY GREGORY Room: [place] [address] ADM IN [facility]#: [id number] Admission: 10/13/21 Attend Phys: Claus Conley Discharge: Date of : 41 Date of Service: 10/13/211916 Report #: [id number] THIS REPORT FOR: //name// [facility] ED Test Date: 2021-10-13 Test Time: 19:17:45 Pat Name: TEJ KENNY Department: Room: [facility] Gender: M Safety Spec: : 1945 Requested By: Jacqueline Rankin Order Number: [id number] MD: Guerrero Valdez Measurements Intervals [place] Rate: 66 P: HI: QRS: -24 QRSD: 129 T: 127 QT: 388 QTc: 407 Interpretive Statements Afib/flut and V-paced complexes No further analysis attempted due to paced rhythm Compared to ECG 10/04/2021 12:55:05 No significant changes Electronically Signed On 10-14-2021 9:13:23 PENOLOGY TEACHER by Guerrero Valdez [email or web address] <ELECTRONICALLY SIGNED> By: Guerrero Valdez MD, FACC 10/14/21912 16 16 Guerrero Valdez MD, FACC /EPI
--- NOTE | 2021-10-14 09:14 | EKG ---
[place] [address] ELECTROCARDIOGRAM REPORT Name: ZOYATEJ Canas GREGORY Room: [place] [address] ADM IN [facility]#: [id number] Admission: 10/13/21 Attend Phys: Claus Conley Discharge: Date of : 41 Date of Service: 10/13/21 2305 Report #: [id number] THIS REPORT FOR: //name// [facility] ED Test Date: 2021-10-13 Test Time: 23:05:13 Pat Name: TEJ KENNY Department: Room: [place] [address] Gender: M Animal Care Attendant: TOM : 1945 Requested By: Jacqueline Rankin Order Number: [id number] MD: Guerrero Valdez Measurements Intervals [place] Rate: 78 P: -67 MA: 249 QRS: -10 QRSD: 135 T: 196 QT: 460 QTc: 525 Interpretive Statements Atrial flutter with ventricular pacing compared to ECG 10/13/2021 19:17:45 No significant changes noted Electronically Signed On 10-14-2021 9:14:17 OIL PIPE INSPECTOR by Guerrero Valdez [email or web address] <ELECTRONICALLY SIGNED> By: Guerrero Valdez MD, FAC 10/14/21 0914 2305 2305 Guerrero Valdez MD, FAC /EPI
--- NOTE | 2021-10-14 13:43 | CON ---
[address] [address] CONSULTATION Name: TEJ KENNY III Room: [address] IN [facility]#: [id number] Admission: 10/13/21 Attend Phys: Luis Copeland Discharge: Date of : 41 Report #: [id number] THIS REPORT FOR: cc: Gera Nguyen MD, Christopher MD Liston, Michael J. MD FAC ~ cc: Gera Nguyen MD, Andres Cardenas MD [facility] DATE OF CONSULTATION: 10/14/2021 CARDIOLOGY CONSULT INDICATION: Chest pain consistent with unstable angina and atrial flutter. HISTORY OF PRESENT ILLNESS: The patient is a 76-year-old gentleman with a history of an ischemic cardiomyopathy. He has evidence of prior extensive inferolateral infarct with an EF of 25-30% by echocardiogram. He is status post biventricular ICD placement. In the recent past, he has been treated for acute on chronic systolic heart failure, COVID pneumonia and atrial fibrillation. He has not been on traditional heart failure medicines at normal doses due to hypotension. The patient was recently discharged after treatment for COVID-19 pneumonia and atrial fibrillation. He returns with typical chest pain. Thus far, his high sensitivity troponin is only 243. EKG shows atrial flutter with ventricular pacing. At the time of interview, he is pain free. PAST MEDICAL HISTORY: 1. Coronary artery disease with previous unsuccessful PCI followed by bypass surgery in [place], [place] several years ago. 2. Ischemic cardiomyopathy with EF of 25-30%. 3. 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 4. Chronic systolic heart failure. 5. History of valve repair,records not available. 6. COPD. 7. Remote history of tobacco use with cessation in the last few years. 8. Hyperlipidemia. ALLERGIES: INTOLERANCE TO DEMEROL. HOME MEDICATIONS: Eliquis 5 mg p.o. b.i.d., atorvastatin 10 mg at bedtime, carvedilol 3.125 mg b.i.d., dexamethasone 2 mg p.o. daily with taper, Protonix 40 mg p.o. daily, prednisone 10 mg daily with taper, spironolactone 25 mg daily, torsemide 20 mg daily. FAMILY HISTORY: The patient[place] [address] CONSULTATION Name: ELLATEJ ISBELL III Room: [address] IN [facility]#: [id number] Admission: 10/13/21 Attend Phys: Luis Copeland Discharge: Date of : 41 Report #: [id number] SOCIAL HISTORY: The patient is . He lives with his son. He recently moved up from [place]. 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 Quit smoking over a year ago. REVIEW OF SYSTEMS: Positive for chronic cough. He reports chronic renal insufficiency. He had chest discomfort and diaphoresis as outlined above. He is without other cardiac complaint. PHYSICAL EXAMINATION: VITAL SIGNS: Blood pressure 99/59, pulse is in the 80s and irregular. Telemetry shows atrial flutter with ventricular pacing. GENERAL: This is a thin, pleasant elderly male who is in no distress. HEENT: Head is normocephalic, atraumatic. The patient is wearing glasses. Extraocular muscles intact. Mucous membranes are moist. NECK: Examination of the neck shows no jugular venous distention. I do not appreciate bruit. CHEST: Reveals clear lung esquivel. CARDIAC: Reveals irregular rhythm, rate controlled. I do not appreciate gallop or murmur. ABDOMEN: Reveals normal bowel sounds. The abdomen is soft and nontender. EXTREMITIES: Shows no edema. SKIN: Warm and dry. DIAGNOSTIC DATA: A 12-lead EKG shows atrial flutter with ventricular pacing, rate controlled. Chest x-ray shows previous sternotomy, biventricular ICD in place, patchy infiltrates bilaterally. There is cardiomegaly. LABORATORY DATA: Reviewed. Sodium 140, potassium 4.4, chloride 103, bicarb 24, BUN 52, creatinine 2.0, serum glucose 153. LFTs within normal limits. Albumin minimally low at 3.1. High sensitivity troponin on arrival 93, subsequently 169 and 248. NT-proBNP 3684. Recent lipid profile from last week shows total cholesterol 101, triglycerides 110, HDL 29, LDL 50. Thyroid function studies normal. Hemoglobin A1c 6.0. Protime 11.7, INR 1.1, APTT 41.0, D-dimer 0.49. White blood cell count 16.3, hemoglobin 15.0, platelet count 302,000. IMPRESSION AND RECOMMENDATIONS: 1. Acute chest pain consistent with unstable angina. We will plan coronary angiography and possible intervention, possibly later today. The patient presently stable. Continue home medications as outlined above. 2. Fairly recent onset atrial arrhythmias including atrial fibrillation and flutter. The patient was started on Eliquis. At this point in time, I believe he would do better in sinus rhythm. I am starting an amiodarone drip with bolus [address] [place] [address] CONSULTATION Name: TEJ KENNY III Room: [address] [place] [facility]#: [id number] Admission: 10/13/21 Attend Phys: Luis Copeland Discharge: Date of : 41 Report #: [id number] in an effort to restore sinus rhythm. Rate is well controlled presently. 3. Acute on chronic systolic heart failure. The patient does not appear grossly volume overloaded at this time. NT-proBNP is minimally elevated. We will resume home diuretics, possibly tomorrow. 4. Ischemic cardiomyopathy. We will attempt to start low dose heart failure medications and titrate as tolerated. May begin that process while in hospital. We will need outpatient followup certainly. 5. Hyperlipidemia. LDL at goal on current regimen. 6. Acute on chronic renal insufficiency. Creatinine 2.0 on arrival. We will repeat labs. This may be due to low cardiac output with the recent atrial arrhythmia challenge. 7. Chronic obstructive pulmonary disease, appears stable. <ELECTRONICALLY SIGNED> By: Guerrero Valdez MD, FACC 10/14/21 1343 0757 [id number] Valdez MD, FACC /nt
[2021-10-14 14:43] LABS: CALCIUM 8.5 mg/dL (8.5-10.1); CREATININE 1.7 mg/dL (0.6-1.3); POTASSIUM 4.3 mmol/L (3.5-5.1)
[2021-10-15] VITALS (7 sets, daily range): BP systolic 102–122; BP diastolic 57–65
[2021-10-15 05:44] LABS: HEMATOCRIT 41.8 % (42.0-52.0); MCH 32.2 pg (26.0-34.0); MCHC 33.5 g/dL (28.0-37.0); MCV 96.1 fL (80.0-100.0); MPV 7.7 fl. (7.2-11.1); RBC 4.35 mil/uL (4.50-6.00); WBC 12.6 thou/uL (4.0-11.0)
[2021-10-15 06:16] LABS: ALBUMIN 2.8 g/dL (3.4-5.0); ALKALINE PHOSPHATASE 46 U/L (46-116); ANION GAP 7 mmol/L (7-16); BUN 31 mg/dL (7-18); CALCIUM 8.3 mg/dL (8.5-10.1); CHLORIDE 107 mmol/L (98-107); CHOLESTEROL 146 mg/dL (<200); CO2 25 mmol/L (21-32); CREATININE 1.4 mg/dL (0.6-1.3); GLUCOSE 81 mg/dL (70-99); HDL CHOLESTEROL 35 mg/dL (>40); LDL CHOLESTEROL 88 mg/dL (<100); POTASSIUM 4.6 mmol/L (3.5-5.1); SGOT 18 U/L (15-37); SGPT 24 U/L (30-65); SODIUM 139 mmol/L (136-145); TC:HDL 4.2 Ratio (Not establshd); TOTAL BILIRUBIN 1.5 mg/dL (<0.1-1.0); TOTAL PROTEIN 5.7 g/dL (6.4-8.2); TRIGLYCERIDE 119 mg/dL (<150); VLDL 24 mg/dL (<40)
[2021-10-15 06:19] LABS: SERUM ASSESSMENT CLEAR
--- NOTE | 2021-10-15 10:33 | CARD ---
[address] [address] CARDIAC CATH REPORT Name: ZOYATEJ Canas GREGORY Room: [address] IN [facility]#: [id number] Admission: 10/13/21 Attend Phys: Luis Copeland Discharge: Date of : 41 Report #: [id number] THIS REPORT FOR: cc: Gera Nguyen MD, Christopher MD Holkins, John M. MD [facility] ~ APPROVED REPORT Study performed: 10/14/2021 15:57:03 Patient Details Patient Status: ED Room #: The patient is a 76 year-old male Event Personnel Guerrero Valdez Test Specialist, Ricky Roper Hose Seamer, Delaney Casanova RN Manager Market Research, Rosa M Barker Monitor, Damian Dao RTR Scrub Procedures Performed Art Access - R femoral artery* Left Heart Cath Coronaries, Bypass Grafts [id number] LHCCORCABG PB Place w/wo Plasty Single LAD [id number] Hemostasis w/ Angioseal Indication Arrhythmia, Chest pain Risk Factors Hypertension Previous Procedures/Diagnoses Previous CABGPrevious PCI Admission/Lab Medications/Medications given during procedure Aspirin, Thrombin Inhibitors, Effient PO 60 mg Procedure Narrative The patient was brought electively to the Cardiac Catheterization Laboratory and was prepped and draped in a sterile manner. The right femoral was infiltrated with 1% Lidocaine subcutaneous anesthesia. IV conscious sedation was used throughout procedure with appropriate monitoring and was performed in the presence of a registered nurse who was an independent trained observer other than the physician performing the procedure. A Perry 6 FR [place] [address] CARDIAC CATH REPORT Name: TEJ KENNY III Room: [address]#: [id number] Admission: 10/13/21 Attend Phys: Luis Copeland Discharge: Date of : 41 Report #: [id number] the right femoral artery. Coronary angiography was performed using coronary diagnostic catheters. The right coronary system was accessed and visualized with a Diagnostic jR4 catheter. The left coronary system was accessed and visualized with a Diagnostic JL4 catheter. The left ventricle was accessed and visualized with a Diagnostic catheter. Left ventricular/Aortic Valve gradient assessed via catheter pullback. Pre-demployment femoral angiogram was performed . Closure device was deployed with a 6 Fr Angioseal. The patient tolerated the procedure well and there were no complications associated with the procedure. There was no hematoma. Intraoperative Conscious Sedation Sedation start time: 16:20 Case end Time: 17:10 Fentanyl 50 mcg Versed 2 mg Fluoro Time: 15.2 minutes Dose: DAP 95891 cGycm2 1267 mGy Contrast Type and Amount: Visipaque 300 mL Coronary Angiography The patient's coronary anatomy is right dominant. [place] Artery Percent Stenosis Grafts (Complete if Previous CABG=Yes: Percent Stenosis) A stub of a previously constructed vein graft was identified. There was 100% occlusion. Diagnostic Cath Left Main 0% narrowing LAD 80% calcified eccentric proximal LAD stenosis with 30% mid vessel narrowing Circumflex 100% ostial occlusion Right Coronary Large dominant vessel with 30% proximal and mid vessel narrowing with 60% distal stenosis Left Ventriculography Left Ventriculography was not performed. Hemodynamics The aortic pressure is 105/56 mmHg with a mean of 79 mmHg. The left ventricular pressure is 102/3 mmHg with a mean of mmHg. The left ventricular end diastolic pressure is 10 mmHg. There was no gradient across the aortic [place] [address] CARDIAC CATH REPORT Name: TEJ KENNY GREGORY Room: [address] [place] [facility]#: [id number] Admission: 10/13/21 Attend Phys: Luis Copeland Discharge: Date of : 41 Report #: [id number] PCI Technique Lesion Anticoagulation was achieved with Angiomax. Percutaneous coronary intervention was performed on the proximal left anterior descending artery segment. The lesion stenosis prior to intervention was 80% with HERMELINDA 3 flow. A 6FR LAUNCHER EBU 4.0 Guide Catheter was used to engage the ostium. A IG: BMW 190cm Interventional Guidewire was used to cross the lesion. BALLOON DILATION A Balloon catheter NC TREK RX 3.5X12 was inserted and inflated up to 14.00atm for 6seconds. Additional Inflation: 18.00atm for 11seconds. Additional Inflation: 20.00atm for 8seconds. A balloon catheter 4.0x12 NC Trek was inserted and inflated up to 14atm for 8 sec Additional inflation: 16atm for 9 seconds Additional Inflation 20 riley for 9 sec additional inflation 20atm for 14 sec STENT DEPLOYMENT A drug-eluting stent [place] RX Stent 4.0X22mm was inserted and inflated up to 16.00atm for 5seconds. Additional Inflation: 18.00atm for 9seconds. POST STENT DEPLOYMENT BALLOON DILATION A Balloon catheter NC Trek RX 4.5 X 12 was inserted and inflated up to 12.00atm for 11seconds. Additional Inflation: 15.00atm for 10seconds. Additional Inflation: 15.00atm for 7seconds. Final angiography reveals 10 % stenosis with HERMELINDA 3 flow. Conclusion 1. Significant coronary artery disease characterized by the following: A 80% eccentric calcified proximal LAD stenosis with 30% mid vessel narrowing B 100% occlusion of the nondominant circumflex at its origin C dominant right coronary artery with 30% proximal and mid vessel narrowings and 60% distal stenosis 2. No patent arterial or venous grafts were defined; a stub of a previously constructed vein graft was identified. 3. Normal left[place] [address] CARDIAC CATH REPORT Name: TEJ KENNY III Room: [address]#: [id number] Admission: 10/13/21 Attend Phys: Luis Copeland Discharge: Date of : 41 Report #: [id number] 4. Successful PCI with PTCA and deployment of a drug-eluting stent at the site of 80% proximal LAD stenosis with 10% residual narrowing and HERMELINDA-3 flow to the distal vessel Recommendations Cardiac Risk Reduction Program Aggressive Medical Therapy Medications Administered Aspirin (any) Prasugrel Diagnostic Cath Approved by: Guerrero Valdez MD Date/Time: 10/15/2021 10:31:37 <ELECTRONICALLY SIGNED> By: Ricky Roper MD, FACC 10/15/213 32 32Ricky Roper MD, FACC /INF
--- NOTE | 2021-10-15 11:12 | EKG ---
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: : 1945 Requested By: Guerrero Valdez Order Number: [id number] Arias MD: Ricky Roper Measurements Intervals [place] Rate: 70 P: MA: QRS: -53 QRSD: 145 T: -73 QT: 429 QTc: 463 Interpretive Statements Afib/flutter and ventricular-paced rhythm No further analysis attempted due to paced rhythm Compared to ECG 10/13/2021 23:05:13 Atrial flutter persists Electronically Signed On 10-15-2021 11:11:56 STATISTICIAN THEORETICAL by Ricky Roper [email or web address] <ELECTRONICALLY SIGNED> By: Ricky Roper MD, FACC 10/15/21 1111 1747 1747 Ricky Roper MD, FACC /EPI
[2021-10-16] VITALS (7 sets, daily range): BP systolic 91–108; BP diastolic 45–77
[2021-10-16 06:53] LABS: CALCIUM 8.2 mg/dL (8.5-10.1); CREATININE 1.2 mg/dL (0.6-1.3)
[2021-10-17] VITALS (7 sets, daily range): BP systolic 91–130; BP diastolic 43–78
--- NOTE | 2021-10-17 13:10 | EKG ---
[place] [address] ELECTROCARDIOGRAM REPORT Name: TEJ KENNY GREGORY Room: [address] ADM [place] .R.#: [id number] Admission: 10/13/21 Attend Phys: Claus Conley Discharge: Date of : 41 Date of Service: 10/15/21 1050 Report #: [id number] THIS REPORT FOR: //name// [facility] Test Date: 2021-10-15 Test Time: 10:50:08 Pat Name: TEJ KENNY Department: Room: [facility] Gender: M Chemistry Technologist: 1887 : 1945 Requested By: Guerrero Valdez Order Number: [id number] Arias MD: Guerrero Valdez Measurements Intervals [place] Rate: 69 P: NE: QRS: -38 QRSD: 146 T: QT: 539 QTc: 578 Interpretive Statements Afib/flut and V-paced complexes No further analysis attempted due to paced rhythm Artifact in lead(s) I,II,aVR,aVL Compared to ECG 10/14/2021 17:47:00 No significant changes Electronically Signed On 10-17-2021 13:10:20 ASSISTANT BANQUET MANAGER by Guerrero Valdez [email or web address] <ELECTRONICALLY SIGNED> By: Guerrero Valdez MD, FACC 10/17/21 1310 1050 1050 Guerrero Valdez MD, FAC /EPI
[2021-10-18] VITALS: BP 101/58
[2021-10-18 03:30] VITALS: BP 106/67
[2021-10-18 05:45] LABS: HEMATOCRIT 37.8 % (42.0-52.0); HEMOGLOBIN 12.9 gm/dL (14.0-18.0); MCH 32.6 pg (26.0-34.0); MCHC 34.1 g/dL (28.0-37.0); MCV 95.6 fL (80.0-100.0); MPV 7.7 fl. (7.2-11.1); RBC 3.96 mil/uL (4.50-6.00); RDW-CV 13.4 % (10.5-14.5); WBC 8.9 thou/uL (4.0-11.0)
[2021-10-18 06:03] LABS: ALBUMIN 2.5 g/dL (3.4-5.0); CALCIUM 7.9 mg/dL (8.5-10.1); CREATININE 1.5 mg/dL (0.6-1.3); MAGNESIUM 1.9 mg/dL (1.8-2.4); POTASSIUM 4.1 mmol/L (3.5-5.1); TOTAL BILIRUBIN 0.8 mg/dL (<0.1-1.0); TOTAL PROTEIN 5.5 g/dL (6.4-8.2)
[2021-10-18 08:12] VITALS: BP 113/62
[2021-10-18 12:09] VITALS: BP 88/61
[2021-10-18 17:15] VITALS: BP 108/60
--- NOTE | 2021-10-18 17:23 | CON ---
[address] [address] CONSULTATION Name: TEJ KENNY III Room: [address] IN .R.#: [id number] Admission: 10/13/21 Attend Phys: Luis Copeland Discharge: Date of : 41 Report #: [id number] THIS REPORT FOR: cc: Gera Nguyen MD, Christopher MD Khan, Abid R. MD ~ DATE OF CONSULTATION: 10/15/2021 NEPHROLOGY CONSULTATION. REASON FOR CONSULTATION: Acute kidney injury. HISTORY OF PRESENT ILLNESS: A 76-year-old gentleman who was admitted with AFib and RVR, also had chest pain and there was concern for unstable angina. He underwent PCI and stent. He was started on IV amiodarone. Creatinine was 2 on admission. He has no preexisting history of kidney disease. He has no complaints at present time, appears to be very comfortable. REVIEW OF SYSTEMS: Constitutional, psych, heme, eyes, ENT, respiratory, cardiac, GI, , endocrine negative except as documented above. PAST MEDICAL HISTORY: Coronary artery disease, hypertension, pacemaker, history of CHF, COPD. SOCIAL HISTORY: No current tobacco use, but previous heavy smoking. FAMILY HISTORY: Not pertinent in a 76-year-old gentleman. CURRENT MEDICATIONS: Reviewed. PHYSICAL EXAMINATION: VITAL SIGNS: Blood pressure 112/62, pulse 70, respirations 16, temperature 36.7. GENERAL: No acute distress. EYES: Open. EARS: Externally normal. NECK: Supple. CARDIOVASCULAR: Regular rate. LUNGS: No crackles. ABDOMEN: Soft. MUSCULOSKELETAL: Nontender. PSYCHIATRIC: Awake, alert. LABORATORY DATA: Sodium 139, potassium 4.6, chloride 107, bicarbonate 25, BUN 31, creatinine 1.4, glucose 81, calcium 8.3. Liver [place] [id number] CONSULTATION Name: ZOYATEJ Canas GREGORY Room: [address]#: [id number] Admission: 10/13/21 Attend Phys: Luis Copeland Discharge: Date of : 41 Report #: [id number] 2.8. White cell count 12.6, hemoglobin 14, platelets 231. ASSESSMENT: 1. Acute kidney injury in the setting of a non-ST elevation myocardial infarction, reduced ejection fraction with a creatinine on admission of 2. UA was bland. 2. Hypoalbuminemia with an albumin of 2.8. 3. Coronary artery disease with non-ST elevation myocardial infarction, status post percutaneous coronary intervention and stenting. 4. Atrial flutter. 5. Congestive heart failure with ischemic cardiomyopathy and ejection fraction of 20-25%, has a biventricular implantable cardioverter defibrillator. 6. Chronic obstructive pulmonary disease. 7. Recent COVID infection. PLAN: Creatinine is improved, down to 1.4 today. He has good urine output. No additional workup needed at this time. We will follow along with you. Thank you for requesting my opinion in the care and management of this patient. <ELECTRONICALLY SIGNED> By: Parisa Sage MD 10/18/21 1723 1056 [id number] Sage MD /nt
[2021-10-18 22:57] VITALS: BP 104/58
[2021-10-19 00:18] VITALS: BP 137/67
[2021-10-19 04:00] VITALS: BP 104/55; BP 132/77
[2021-10-19 06:20] LABS: HEMATOCRIT 38.8 % (42.0-52.0); HEMOGLOBIN 13.3 gm/dL (14.0-18.0); MCHC 34.2 g/dL (28.0-37.0); MCV 96.6 fL (80.0-100.0); MPV 7.6 fl. (7.2-11.1); RBC 4.02 mil/uL (4.50-6.00); RDW-CV 13.8 % (10.5-14.5); WBC 10.4 thou/uL (4.0-11.0)
[2021-10-19 07:08] LABS: ALBUMIN 2.5 g/dL (3.4-5.0); CALCIUM 8.1 mg/dL (8.5-10.1); CREATININE 1.2 mg/dL (0.6-1.3); POTASSIUM 4.2 mmol/L (3.5-5.1); TOTAL PROTEIN 5.8 g/dL (6.4-8.2)
[2021-10-19 08:00] VITALS: BP 95/64
[2021-10-19] MEDS ORDERED: ENTRESTO 24 MG1 EACH PO (09:46)
[2021-10-19] MEDS ORDERED: PACERONE 200 M200 M1 PO (09:46)
[2021-10-19] MEDS ORDERED: NICOTINE PATCH1 EAC3 TRANSDERM (09:46)
[2021-10-19] MEDS ORDERED: EFFIENT10 MG PO (09:46)
[2021-10-19] MEDS ORDERED: RESTORIL7.5 MG PO (09:46)
[2021-10-19 12:00] VITALS: BP 96/51
== END 2021-10-19 13:26 | DRG 246 ==
LOC: M.ERS 18:57 → M.2W 21:01 → M.TBA 21:01 → M.TBA-ER 21:01 → M.TBA 10-14 13:23 → M.2W 10-14 18:05
PROVIDERS: Emergency Medicine; Internal Medicine; Internal Medicine Cardiovascular Disease; ADMIT Internal Medicine; ATTEND Internal Medicine
PROC: 4A023N7 Measurement of Cardiac Sampling and Pressure, Left Heart, Percutaneous Approach (ICD-10-PCS; principal; 2021-10-14)
PROC: B41FYZZ Fluoroscopy of Right Lower Extremity Arteries using Other Contrast (ICD-10-PCS; principal; 2021-10-14)
PROC: B211YZZ Fluoroscopy of Multiple Coronary Arteries using Other Contrast (ICD-10-PCS; principal; 2021-10-14)
PROC: B213YZZ Fluoroscopy of Multiple Coronary Artery Bypass Grafts using Other Contrast (ICD-10-PCS; principal; 2021-10-14)
PROC: 027034Z Dilation of Coronary Artery, One Artery with Drug-eluting Intraluminal Device, Percutaneous Approach (ICD-10-PCS; principal; 2021-10-14)
DX: I21.4 Non-ST elevation (NSTEMI) myocardial infarction (principal); N17.0 Acute kidney failure with tubular necrosis; I50.43 Acute on chronic combined systolic (congestive) and diastolic (congestive) heart failure; I48.92 Unspecified atrial flutter; R04.2 Hemoptysis; I13.0 Hypertensive heart and chronic kidney disease with heart failure and stage 1 through stage 4 chronic kidney disease, or unspecified chronic kidney disease; I48.91 Unspecified atrial fibrillation; J44.9 Chronic obstructive pulmonary disease, unspecified; Z20.822 Contact with and (suspected) exposure to COVID-19; I25.5 Ischemic cardiomyopathy; E78.5 Hyperlipidemia, unspecified; N18.9 Chronic kidney disease, unspecified; I25.110 Atherosclerotic heart disease of native coronary artery with unstable angina pectoris; I95.9 Hypotension, unspecified; R53.81 Other malaise; Z95.0 Presence of cardiac pacemaker; Z88.8 Allergy status to other drugs, medicaments and biological substances; Z87.891 Personal history of nicotine dependence; Z95.828 Presence of other vascular implants and grafts; Z82.49 Family history of ischemic heart disease and other diseases of the circulatory system; Z86.16 Personal history of COVID-19